=== PATIENT | female | born 1960 | race Caucasian/White ===

== ENCOUNTER 2017-07-03 15:29 | Inpatient (IN) | payer OTHER ==
[~2017-07-03] VITALS: Ht 172.7 cm; Wt 136.5 kg
[~2017-07-03 15:29] MED LIST: ATORVASTATIN CA10 MG PO; ATORVASTATIN CA20 MG PO; BACTRIM DS TAB1 EACH PO; BAYER CHEWABLE81 MG PO; BP MED X 2; CARVEDILOL25 MG PO; CLONIDINE HCL0.2 M2 PO; CLOPIDOGREL75 MG PO; DUONEB 2.5-0.5 M3 ML INH; HUMALOG100 UNIT/1 SQ; HUMALOG100 UNIT/1 SUBQ; HUMULIN 70100 UNIT/3 INJECTION; HYDRALAZINE 5050 MG PO; HYDROCHLOROTHIA25 M1 PO; HYDROCHLOROTHIA25 M2 PO; KLOR-CON 1010 MEQ PO; LANTUS SC; LASIX 20 MG TAB20 MG PO; LEVEMIR SUBQ; LISINOPRIL; LISINOPRIL5 MG PO; MOBIC7.5 M1 PO; NORCO 5-325 TA1 EACH PO; NORVASC10 MG PO; NORVASC5 MG PO; NOVOLIN 70100 UNIT/5 SUBQ; NOVOLIN N100 UNIT/1 SUBQ; NOVOLOG100 UNIT/1 SUBQ; PROAIR HFA8.5 GM INH; PROTONIX40 M1 PO; SODIUM BICARBO650 M3 PO; SYNTHROID175 MCG PO; SYNTHROID25 MCG PO; TRAMADOL 50 MG50 MG PO; ZESTRIL20 MG PO; ZYRTEC10 M4 PO; ZYVOX600 MG PO
[2017-07-03 15:44] VITALS: BP 113/65
[2017-07-03] MEDS ORDERED: HYDRALAZINE 2525 MG PO (15:53)
[2017-07-03] MEDS ORDERED: CARTIA XT120 M1 PO (15:53)
[2017-07-03] MEDS ORDERED: OXYCODONE HCL 55 MG PO (15:54)
[2017-07-03] MEDS ORDERED: ACCUNEB SO1.25 MG/1 INH (15:55)
[2017-07-03 16:20] LABS: HEMATOCRIT 29.7 % (37.0-47.0); HEMOGLOBIN 9.6 gm/dL (12.0-15.0); MCH 27.8 pg (26.0-34.0); MCHC 32.3 g/dL (28.0-37.0); MCV 86.1 fL (80.0-100.0); NUCLEATED RBCS 0 /100WBC; PLATELET COUNT* 181 thou/uL (150-400); RBC 3.45 mil/uL (4.20-5.00); RDW-CV 17.8 % (10.5-14.5)
[2017-07-03 16:26] LABS: ANION GAP 2 mmol/L (7-16); BUN 66 mg/dL (7-18); CALCIUM 8.8 mg/dL (8.5-10.1); CHLORIDE 104 mmol/L (98-107); CO2 37 mmol/L (21-32); CREATININE 2.4 mg/dL (0.6-1.3); GLUCOSE 149 mg/dL (70-99); POTASSIUM 3.4 mmol/L (3.5-5.1); SODIUM 143 mmol/L (136-145)
[2017-07-03 16:38] LABS: ALBUMIN 2.9 g/dL (3.4-5.0); ALKALINE PHOSPHATASE 82 U/L (46-116); NT-PRO BRAIN NAT PEPTIDE 981 pg/mL (<300); SGOT 20 U/L (15-37); SGPT 23 U/L (30-65); TOTAL BILIRUBIN 0.4 mg/dL (<0.1-1.0); TOTAL PROTEIN 7.3 g/dL (6.4-8.2); TROPONIN-I LEVEL <0.06 ng/mL (<0.06)
[2017-07-03 16:42] LABS: ABSOLUTE EOSINOPHILS 0.3 thou/uL (0.0-0.7); ABSOLUTE LYMPHOCYTES 0.5 thou/uL (0.8-5.3); ABSOLUTE MONOCYTES 0.4 thou/uL (0.0-1.2); ABSOLUTE NEUTROPHILS 7.9 thou/uL (1.6-8.1); PLATELET ESTIMATE ADEQUATE
[2017-07-03 16:43] LABS: ANISOCYTOSIS 1+; HYPOCHROMASIA 1+
--- NOTE | 2017-07-03 18:00 | NUR ---
ASSUMED PT CARE
[2017-07-03 18:05] LABS: URINE BILIRUBIN NEGATIVE (Negative); URINE BLOOD NEGATIVE (Negative); URINE CLARITY CLEAR; URINE COLOR YELLOW; URINE GLUCOSE-RANDOM NEGATIVE (Negative); URINE KETONES NEGATIVE (Negative); URINE LEUKOCYTES-REFLEX NEGATIVE (Negative); URINE NITRITE-REFLEX NEGATIVE (Negative); URINE PROTEIN NEGATIVE (Negative); URINE UROBILINOGEN 0.2 E.U./dl (0.2-1.0)
[2017-07-03 18:36] VITALS: BP 145/51
[2017-07-03 19:30] VITALS: BP 130/89
--- NOTE | 2017-07-03 19:30 | NUR ---
ADMITTED TO ROOM FROM ER. TELEMETRY APPLIED SHOWING SB WITH 1ST AVB, BBB AND PAC. O2 ON AT 2L/NC, SOB WITH ACTIVITY. MARITZA LOWER LEGS TIGHT, NON PITTING. SEE ADMISSION ASSESSMENT AND HX. WILL CONT TO MONITOR AND ASSIST NEEDED.
[2017-07-03] MEDS ORDERED: PAXIL10 MG PO (20:02)
[2017-07-04] VITALS: BP 128/45
[2017-07-04] MEDS ORDERED: MIRALAX17 GM PO (00:53)
[2017-07-04 04:20] VITALS: BP 138/43
[2017-07-04 04:52] LABS: HEMATOCRIT 27.2 % (37.0-47.0); HEMOGLOBIN 8.8 gm/dL (12.0-15.0); MCH 27.7 pg (26.0-34.0); MCHC 32.2 g/dL (28.0-37.0); MCV 85.9 fL (80.0-100.0); MPV 8.8 fl. (7.2-11.1); RBC 3.16 mil/uL (4.20-5.00); RDW-CV 17.9 % (10.5-14.5)
[2017-07-04 05:06] LABS: CALCIUM 8.6 mg/dL (8.5-10.1); CREATININE 2.4 mg/dL (0.6-1.3); MAGNESIUM 2.4 mg/dL (1.8-2.4); POTASSIUM 3.4 mmol/L (3.5-5.1)
--- NOTE | 2017-07-04 07:07 | NUR ---
AWAKE FREQ TONIGHT. PT HAD AND EPISODE OF RT SIDE CHEST PAIN UNDER BREAST RADIATING INTO BACK. PT ASKING FOR NITRO THEN SAID IT WAS GONE. STATES HAS THESE EPISODES ABOUT 3X/MONTH. DIFFERENT THEN CHRONIC BACK AND KNEE PAIN. TELEMETRY CONT TO SHOW SB WITH 1ST AVB, BBB, RATE OCC INTO 30'S BUT IMMEDIATELY RETURNS INTO 40'S. CONT TO HAVE URGENCY WITH URINATION, ASSISTED TO BSC. ABLE TO ACHIEVE HS GOAL OF REST AND PARTIAL COMFORT. HOURLY ROUNDING OBSERVED.
[2017-07-04 08:00] VITALS: BP 148/52
--- NOTE | 2017-07-04 08:46 | NUR ---
RECEIVED REPORT FROM JOSE ESPINOSA. ASSUMED CARE OF PT AROUND 07. PT A&O X4, PLEASANT, VSS, O2 SAT 99% ON RA, LUNGS DIMINISHED. 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 AM ASSESSMENT AND VITALS COMPELTED CHARTED. IV INTACT AND SALINE LOCKED TO RIGHT FA. PT REPORTS CHRONIC BACK PAIN 710 - PAIN MEDICATION SCHEDULED FOR THIS AM. PT REPORTS BM YESTERDAY, NO ISSUES. PT REPORTS URINARY URGENCY. PT INFORMED OF PLAN OF CARE, COMMUNCIATES UNDERSTANDING. PT LEFT RESTIG IN BED WATCHING TV WITH VISITOR AT BEDSIDE. LOW FALL RISK PRECAUTIONS IN PLACE. CALL LIGHT IS WITHIN REACH, WCTM FOR DURATION OF SHIFT.
--- NOTE | 2017-07-04 11:31 | EKG ---
[place] [address] ELECTROCARDIOGRAM REPORT Name: ZAMZAMFRANCISCA L Room: [address] ADM IN M.R.#: [id number] Admission: 07/03/17 Attend Phys: Marquita Mccoy MD Discharge: Date of : 56 Report #: [id number] THIS REPORT FOR: //name// [facility] ED Test Date: 2017-07-03 Test Time: 15:56:35 Pat Name: FRANCISCA WYMAN Department: Room: [facility] Gender: F Operations Dispatcher: Carlota RHODES : 1960 Requested By: Sloane Byrne Order Number: [id number] MD: Alexis Simons Measurements Intervals [place] Rate: 61 P: 0 AR: 262 QRS: -71 QRSD: 148 T: 153 QT: 455 QTc: 459 Interpretive Statements Atrial flutter with variable AV conduction Prolonged AR interval Right bundle branch block Inferior infarct, old Baseline wander in lead(s) V6 Compared to ECG 01/15/2017 21:31:33 No significant changes Electronically Signed On 07-04-2017 11:31:29 CDT by Alexis Simons [email or web address] <ELECTRONICALLY SIGNED> By: Alexis Simons MD, FACC 07/04/17 1131 1556 1556 Alexis Simons MD, FACC /EPI
--- NOTE | 2017-07-04 12:25 | NUR ---
MET WITH PT TO DISCUSS HOME SITUATION/DC PLANNING. PT LIVES WITH HER MOTHER WHO IS ALSO HER DPOA. 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 PT HAS HAD HH WITH [facility] IN THE PAST AND WOULD LIKE TO HAVE THEM AGAIN AT [facility]. PT HAS WALKER, BIPAP, NEB AND O2 THRU [facility], WEARS O2 2L AT ALL TIMES. SHE STATES HER BIPAP NEEDS CHECKED, FAMILY IS BRINGING IT IN FOR RT TO ASSESS. IF NEEDED, COULD HAVE [facility] CHECK ALSO. PT FOLLOWS WITH DR HA MUNROE AT [facility], STATES HAS APPT IN EARLY JULY. PT PLANS TO RETURN HOME AT [facility]. WILL FOLLOW [facility] [phone] FAX [phone]
--- NOTE | 2017-07-04 13:47 | 2DMMODE ---
[place] [address] 2 D/M-MODE ECHOCARDIOGRAM Name: ZAMZAMFRANCISCA L Room: [address] IN [facility]#: [id number] Admission: 07/03/17 Attend Phys: Marquita Mccoy, Discharge: Date of : 56 Date of Service: 07/04/17 1346 Report #: [id number] THIS REPORT FOR: //name// APPROVED REPORT Study performed: 07/04/2017 11:36:34 EXAM: Comprehensive 2D, Doppler, and color-flow Echocardiogram Patient Location: In-Patient Room #: [facility] Status: routine BSA: 2.47 HR: 54 bpm BP: 148/52 mmHg Rhythm: NSR Other Information Study Quality: Good Indications COPD Dyspnea 2D Dimensions LVEF(%): 70.39 (>50%) IVSd: 14.16 (7-11mm) LVOT Diam: 19.64 (18-24mm) LVDd: 49.06 mm PWd: 14.32 (7-11mm) Ascending Ao: 30.25 (22-36mm) LVDs: 29.46 (25-40mm) Aortic Root: 29.37 mm Seo's LVEF: 70.39 % Volumes Left Atrial Volume (Systole) LA ESV Index: 30.90 mL/m2 Aortic Valve AoV Peak Tyrese.: 1.56 m/s AO Peak Gr.: 9.79 mmHg LVOT Max P.26 mmHg AO Mean Gr.: 5.29 mmHg LVOT Mean P.77 mmHg LVOT Max V: 1.15 m/s AO V2 VTI: 37.12 cm LVOT Mean V: 0.77 m/s SHLOMO (VTI): 2.62 cm2 LVOT V1 VTI: 32.10 [place] [address] 2 D/M-MODE ECHOCARDIOGRAM Name: FRANCISCA WYMAN Room: [address] IN .R.#: [id number] Admission: 07/03/17 Attend Phys: Marquita cMcoy, Discharge: Date of : 56 Date of Service: 07/04/17 1346 Report #: [id number] E/A Ratio: 1.98 MV Decel. Time: 185.38 ms MV E Max Tyrese.: 1.54 m/s MV PHT: 53.76 ms MVA (PHT): 4.09 cm2 TDI E/Lateral E': 17.11 E/Medial E': 22.00 Medial E' Tyrese.: 0.07 m/s Lateral E' Tyrese.: 0.09 m/s Pulmonary Valve PV Peak Tyrese.: 1.23 m/s PV Peak Gr.: 6.01 mmHg Tricuspid Valve TR Peak Gr.: 38.25 mmHg RVSP: 43.00 mmHg Left Ventricle The left ventricle is normal size. There is normal LV segmental wall motion. Mild to moderate concentric left ventricular hypertrophy. Left ventricular systolic function is normal. LVEF is 65-70%. Transmitral Doppler flow pattern suggests restrictive physiology. Right Ventricle The right ventricle is normal size. The right ventricular systolic function is normal. Atria Left atrium is mildly dilated. Right atrium is mildly dilated. Aortic Valve Mild aortic valve sclerosis. No aortic regurgitation is present. There is no aortic valvular stenosis. Mitral Valve The mitral valve is normal in structure. Trace mitral regurgitation. No evidence of mitral valve stenosis. Tricuspid Valve The tricuspid valve is normal in structure. Trace tricuspid regurgitation. The RVSP is 55-60 mmHg. Pulmonic Valve The pulmonary valve is normal in structure. There [place] [address] 2 D/M-MODE ECHOCARDIOGRAM Name: FRANCISCA WYMAN Room: [address]#: [id number] Admission: 07/03/17 Attend Phys: Marquita Mccoy, Discharge: Date of : 56 Date of Service: 07/04/17 1346 Report #: [id number] valvular regurgitation. Great Vessels The aortic root is normal in size. IVC is dilated and collapses <50% with inspiration. Pericardium There is no pericardial effusion. <Conclusion> The left ventricle is normal size. Mild to moderate concentric left ventricular hypertrophy. Left ventricular systolic function is normal. LVEF is 65-70%. Transmitral Doppler flow pattern suggests restrictive physiology. Left atrium is mildly dilated. Right atrium is mildly dilated. Trace tricuspid regurgitation. The RVSP is 55-60 mmHg. IVC is dilated and collapses <50% with inspiration. <ELECTRONICALLY SIGNED> By: Alexis Simons MD, FACC 07/04/17 1346 1346 1346 Alexis Simons MD, FACC /INF
[2017-07-04 16:41] VITALS: BP 153/52
--- NOTE | 2017-07-04 19:04 | NUR ---
VSS. PT REMAINS A&O4. O2 SAT >90% ON 2L PER NC. 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 PT UP SEVERAL TIMES TO USE BEDSIDE COMMODE WITH STANDBY ASSIST. PT WEARING INCONTINENT PADS TO HELP WITH STRESS INCONTINENCE. PT EATING AND DRINKING WITHOUT ISSUE.FLUID RESTIRCTION MAINTAINED. FAMILY VISITED OFF AND ON THROUGHOUT THE SHIFT. PT REPORTED HEADACHE LATE THIS AM, BUT REFUSED NEED FOR MEDICATION STATING "I JUST NEED TO REST". PT'S HEADACHE RESOLVED ABOUT AN HOUR LATER. PT HAVING GOOD URINARY OUTPUT. PT HAS BROUGHT HOME CPAP MACHINE UP TO USE [employer], STATES SHE MAY NEED SETTINGS RECHECKED. ECHO AND CHEST CT COMPLETED. SEE RESULTS. PT CURRENTLY VISITING IN BED WITH HER ISABELA. CALL LIGHT IS WITHIN REACH, FALL PRECAUTIONS ARE IN PLACE. HORULY ROUNDING PERFORMED.
[2017-07-04 20:00] VITALS: BP 151/50
[2017-07-05 00:19] VITALS: BP 164/90
[2017-07-05 04:40] VITALS: BP 159/47
[2017-07-05 04:49] LABS: HEMATOCRIT 28.6 % (37.0-47.0); HEMOGLOBIN 9.4 gm/dL (12.0-15.0); MCH 27.9 pg (26.0-34.0); MCHC 32.9 g/dL (28.0-37.0); MCV 84.8 fL (80.0-100.0); MPV 9.2 fl. (7.2-11.1); RBC 3.37 mil/uL (4.20-5.00); RDW-CV 17.9 % (10.5-14.5); WBC 9.5 thou/uL (4.0-11.0)
[2017-07-05 05:09] LABS: CALCIUM 9.2 mg/dL (8.5-10.1); CREATININE 2.3 mg/dL (0.6-1.3); MAGNESIUM 2.1 mg/dL (1.8-2.4); POTASSIUM 4.3 mmol/L (3.5-5.1)
--- NOTE | 2017-07-05 06:55 | NUR ---
AWAKE MOST OF NIGHT. UP TO BSC FREQ, HAVING URGENCY. ASSESSMENT UNCHANGED. TELEMETRY CONT TO SHOW SB WITH 1ST AVB AND BBB WITH RATE INTO 50'S. ACHIEVED HS GOAL OF SAFETY. HOURLY ROUNDING OBSERVED.
[2017-07-05 08:00] VITALS: BP 155/52
--- NOTE | 2017-07-05 08:46 | CON ---
[address] [address] CONSULTATION Name: FRANCISCA WYMAN Room: [address] IN .R.#: [id number] Admission: 07/03/17 Attend Phys: Marquita Mccoy MD Discharge: Date of : 56 Report #: [id number] THIS REPORT FOR: //name// CC: Juan Flynnudjanine Elizondo MD [facility] INDICATION: Acute diastolic heart failure. HISTORY OF PRESENT ILLNESS: The patient is a 56-year-old white female who has a history of chronic diastolic heart failure. She has had acute exacerbation over the last month with increased weight gain, increased dyspnea and increased PND. Despite increasing doses of oral diuretics at home, she continues to have volume overload. She has some brief atypical chest pain lasting only seconds. It does not sound like angina. She has a history of coronary artery disease with stenting to the right coronary artery in 2009. She had subsequent intervention in 2013. She has, by noninvasive studies, normal left ventricular systolic function. Repeat echocardiogram has been obtained today and is pending. She is without other cardiac complaints at this time. PAST MEDICAL HISTORY: 1. Chronic diastolic heart failure. 2. Coronary artery disease. 3. Hypertension. 4. Paroxysmal supraventricular tachycardia. 5. Hyperlipidemia. 6. Type 2 diabetes mellitus. PAST SURGICAL HISTORY: 1. Carpal tunnel release. 2. Percutaneous coronary intervention as outlined above. 3. Tonsillectomy. FAMILY HISTORY: Father had heart attack at age 69. SOCIAL HISTORY: The patient quit smoking in 2009. She does not drink alcohol. 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 She wears glasses without visual loss and dentures. Otherwise, 14-point review of [place] [address] CONSULTATION Name: FRANCISCA WYMAN Room: [address]#: [id number] Admission: 07/03/17 Attend Phys: Marquita Mccoy MD Discharge: Date of : 56 Report #: [id number] PHYSICAL EXAMINATION: VITAL SIGNS: Blood pressure 148/52, pulse 49. GENERAL: This is a morbidly obese white female in no distress. HEENT: Extraocular muscles intact. Mucous membranes moist. NECK: Shows a thick neck. I do not appreciate obvious bruit or jugular venous distention. CHEST: Reveals clear lung briggs. CARDIAC: Reveals a regular rhythm with normal S1 and S2. I do not appreciate gallop or murmur. ABDOMEN: Reveals a protuberant abdomen, soft, nontender. Bowel sounds present. EXTREMITIES: Shows trace lower extremity and ankle edema. Peripheral pulses 2+ and palpable. SKIN: Warm and dry. LABORATORY DATA: A 12-lead EKG shows what appears to be in atrial flutter with variable AV conduction. There is a possible old inferior infarct. There is a right bundle-branch block. Labs are reviewed. Sodium 144, potassium 3.4, chloride 103, bicarbonate 40, BUN 64, creatinine 2.4, serum glucose 138. LFTs are within normal limits. Troponin is less than 0.06. NT-proBNP is 981. White blood cell count 8.0, hemoglobin 8.8, platelet count 176,000. Chest x-ray: Mildly increased basilar density suggesting atelectasis. CT chest: Benign calcified granulomas. No suspicious lesions, coronary calcification noted, interval resolution of a trace left pleural effusions and atelectasis. IMPRESSION AND RECOMMENDATIONS: 1. Purrh-kk-[id number] diastolic heart failure. Echocardiogram ordered and pending. Continue IV Lasix. We will follow I's and O's during hospitalization and follow labs carefully. 2. Coronary artery disease, presently stable. She is having no symptoms to suggest angina or acute coronary syndrome. 3. Hypertension. Heart rate is somewhat slow. I am adjusting her antihypertensives. 4. Bradycardia due to medication including diltiazem and carvedilol. 5. Hypothyroidism. Continue replacement. 6. History of paroxysmal supraventricular tachycardia without clinical recurrence. 7. Possible atrial flutter on EKG. Continue telemetry monitoring. Rate appears to be well controlled. We will need to consider chronic anticoagulation. <ELECTRONICALLY SIGNED> By: Alexis Simons MD, FACC 07/05/17 0846 1326 [id number] Hospitaldamian Simons MD, FACC /nt
[2017-07-05 12:58] VITALS: BP 147/39
--- NOTE | 2017-07-05 16:49 | NUR ---
RECEIVED REPORT FROM FRANCISCA GARCIA. ASSUMED CARE OF PT AROUND 729. PT A&OX4, PLEASANT. PT STATES SHE IS TIRED TODAY, DIDN'T SLEEP WELL LAST NIGHT. VSS, O2 SAT 97% ON 3L PER NC. 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 AM ASSESSMENT AND VITALS COMPLETED CHARTED. IV TO RIGHT FA INTACT AND SALINE LOCKED. PT CONTINUIING TO DIURESE TODAY - UP FREQUENTLY TO THE BEDSIDE COMMODE. PT ALSO WEARING INCONTINENT BRIEFS TO HELP WITH HER URGENCY. EDEMA TO BLE IMPROVING, LESS TIGHT TODAY, REMAINS NON-PITTING. PT REPORTED BACK PAIN THIS AM AND RECEIVED SCHEDULED PAIN MEDICATION WITH NO RELIEF. PT REFUSED FURTHER MEDICATION FOR PAIN AND HAS BEEN HANDLING HER PAIN THROUGH REPOSITIONING AND DISTRACTION. PT HAS VISITED WITH FAMILY ON HER CELL PHONE TODAY. PT CURRENTLY RESTING IN BED WATCHING TV. CALL LIGHT IS WITHIN REACH, FALL PRECAUTIONS ARE IN PLACE. HOURLY ROUNDING PERFORMED. WCTM FOR DURATION OF SHIFT.
[2017-07-05 17:16] VITALS: BP 122/50
[2017-07-05 20:15] VITALS: BP 139/52
[2017-07-06] VITALS (7 sets, daily range): BP systolic 106–159; BP diastolic 48–63
[2017-07-06 04:24] LABS: HEMATOCRIT 30.2 % (37.0-47.0); HEMOGLOBIN 9.7 gm/dL (12.0-15.0); MCH 27.2 pg (26.0-34.0); MCHC 32.1 g/dL (28.0-37.0); MPV 9.4 fl. (7.2-11.1); RBC 3.55 mil/uL (4.20-5.00); RDW-CV 17.8 % (10.5-14.5)
[2017-07-06 04:41] LABS: CALCIUM 9.1 mg/dL (8.5-10.1); CREATININE 2.4 mg/dL (0.6-1.3); POTASSIUM 3.9 mmol/L (3.5-5.1)
--- NOTE | 2017-07-06 04:59 | NUR ---
PT SLEPT AT INTERVALS DURING THE NIGHT, UP SBA TO THE BSC, REMAINS ON 3L/NC, PLEASANT, PRN PAIN MEDICATIONS GIVEN PER REQUEST, CALL LIGHT IN REACH, BED ALARM ON FOR SAFETY, WILL CONTINUE TO MONITOR
--- NOTE | 2017-07-06 11:08 | NUR ---
ASSUMED CARE OF PATIENT THIS AM AT 0730. PATIENT IS ALERT AND ORIENTED X 4. SHE C/O CHRONIC BACK PAIN. PATIENT MEDICATED FOR PAIN PO AND IV. FSBS MONITORED. PATIENT HAS BEEN UP TO THE BSC FREQUENTLY FOR URINE. TELE SHOWS CONTINUED SR WITH BBB AND 1ST DEGREE AVB. O2 SATS 96% ON 3 LITERS. WILL CONTINUE TO MONITOR COMFORT AND RESPIRATORY STATUS. NO FALLS OR INJURY.
--- NOTE | 2017-07-06 20:00 | NUR ---
RECEIVED REPORT AND ASSUMED CARE OF PT, ASSESSMENT COMPLETED. PT SEEMS QUIET AND IN THE DARK THIS EVENING. STATES NOT FEELING WELL. DECREASED EDEMA IN MARITZA LOWER LEGS. VOIDING WELL PER BSC, HAVING URGENCY. CONT WITH MOISTURE DERMATITIS TO BUTTOCKS. O2 ON AT 3L/NC, HOB ELEVATED. TELEMETRY ON SHOWING SR WITH 1ST AVB AND BBB. HR 79, PT STATES HER HEART IS RACING COMPARED TO WHAT SHE NORMALLY RUNS, EXPLAINED DR HAS CHANGED CARDIAC MEDS. WILL CONT TO MONITOR AND ASSIST NEEDED.
[2017-07-07 03:52] VITALS: BP 140/69
[2017-07-07 05:57] LABS: CALCIUM 9.1 mg/dL (8.5-10.1); CREATININE 2.4 mg/dL (0.6-1.3); MAGNESIUM 2.1 mg/dL (1.8-2.4)
--- NOTE | 2017-07-07 06:56 | NUR ---
SLEPT WELL ALL NIGHT. C/O UPSET STOMACH, IV MED GIVEN, IMMEDIATELY BACK TO SLEEP. UP TO BSC INDEPENDENTLY, DRIBBLING DURING TRANSFER. O2 ON AT 3L/NC. TELEMETRY CONT TO SHOW SR WITH 1ST AVB AND BBB. PO PAIN MED GIVEN AT HS. ACHIEVED HS GOAL OF REST AND COMFORT. HOURLY ROUNDING OBSERVED.
[2017-07-07 09:00] VITALS: BP 142/64
[2017-07-07 11:00] VITALS: BP 155/70
--- NOTE | 2017-07-07 11:23 | EKG ---
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 : 1960 Requested By: Carlos Teresa Order Number: [id number] James MD: Brent Pineda Measurements Intervals [place] Rate: 85 P: -60 AL: 262 QRS: -79 QRSD: 135 T: 88 QT: 399 QTc: 475 Interpretive Statements Sinus rhythm left axis Atrial premature complex Prolonged AL interval Right bundle branch block Compared to ECG 07/03/2017 15:56:35 Atrial premature complex(es) now present Electronically Signed On 07-07-2017 11:23:16 CDT by Brent Pineda [email or web address] <ELECTRONICALLY SIGNED> By: Brent Pineda MD, FAC 07/07/17 1123 0923 0923 Brent Pineda MD, [facility] /EPI
--- NOTE | 2017-07-07 13:25 | NUR ---
Nutrition: Pt seen for high BMI. Admitted with renal failure. H/o COPD, HTN, DM, OBE, CKD IV, CHF. On IV lasix and daily wts. On fluid restriction, renal diet. Labs: BUN 63, creat 2.4, alb 2.9, BG 200. Tolerating diuresis. Pt refused renal diet education. Wt is 305#, usual wt is around 285#. Consider Mild risk. RD available via consult if further nutrition is needed.
[2017-07-07 16:00] VITALS: BP 106/64
--- NOTE | 2017-07-07 16:12 | NUR ---
ASSUMED PT CARE AT 0700 PT IS ALERT AND ORIENTED X 4 PT STATES SHE IS HAVING CHEST PAIN ASSESSED PT WHO STATES PAIN IS MORE CHEST ACHINESS STATES PAIN IS UNDER BREAST ALSO NOTIFIED CARDIOLOGY WHO ORDERED EKG AND NITRO GAVE 1 OF NITRO REASSESSED PT STATES NITRO HELPED EKG IS SR BBB, PT IS UP AD CARLOS PT IS NOT A FALL RISK, PT IS SR BBB PAC ON THE MONITOR NO FURTHER C/O CHEST ACHINESS NOTED, PT IS ON 3L/NC, PT DOES NOT WANT TO MOVE OUT OF BED CONTINUES TO BE INACTIVE EVEN WITH ENCOURAGEMENT OF AMBULATING, WILL CONTINUE TO MONITOR
[2017-07-07 20:00] VITALS: BP 182/66
[2017-07-07 23:40] VITALS: BP 167/83
--- NOTE | 2017-07-08 03:46 | NUR ---
ASSUMED PT CRAE At 1930, PT IS A&OX4, PT IS TRACING NSR ON THE MONITOR, WITH A 1DAVB AND A BBB. PT IS ON 3L NC, ACCORDING TO THE PT SHE WEARS 2L NC AT HOME ALL THE TIME. PT HAS HER HOME CPAP AT THE [facility], BUT STATES "IT IS BROKEN, IT DOES NOT GIVEN ME ENOUGH AIR" SO SHE REFUSES TO WEAR IT. PT C/O GENERALIZED PAIN THIS SHIFT, PRN PAIN MEDICATIONS GIVEN PER MAR WITH RELIEF. PT IS UP AD CARLOS TO THE BS. PT IS ON ISOLATION FOR HX OF MRSA. BED IN LOW POSITION, CALL LIGHT IN REACH. PT SLEPT ON AND OFF THROUGHOUT THE NIGHT. HOURLY ROUNDING COMPLETED FOR PT SAFETY.
[2017-07-08 03:47] VITALS: BP 147/64
[2017-07-08 04:58] LABS: BUN 60 mg/dL (7-18); CALCIUM 9.1 mg/dL (8.5-10.1); CHLORIDE 97 mmol/L (98-107); CREATININE 2.3 mg/dL (0.6-1.3); GLUCOSE 107 mg/dL (70-99); MAGNESIUM 1.9 mg/dL (1.8-2.4); POTASSIUM 3.7 mmol/L (3.5-5.1); SODIUM 146 mmol/L (136-145)
[2017-07-08 05:03] LABS: CO2 > 45 mmol/L (21-32)
[2017-07-08 09:30] VITALS: BP 172/72
[2017-07-08] MEDS ORDERED: LASIX 80 MG TAB80 MG PO (09:48)
[2017-07-08] MEDS ORDERED: METOLAZONE 5 MG5 MG PO (09:48)
[2017-07-08] MEDS ORDERED: POTASSIUM20 PO (09:49)
[2017-07-08 11:41] VITALS: BP 175/77
--- NOTE | 2017-07-08 14:00 | NUR ---
CONTINUE TO FOLLOW, PT HAS BEEN CLEARED FOR DC. MET WITH PT. SHE STATED SHE THOUGHT SOMEONE FROM [facility] WAS COMING TO CHECK HER CPAP. CALL TO [facility], SPOKE WITH ELISABETH. THEY ARE CHECKING TO SEE IF SOMEONE WILL CHECK IT HERE OR AT HER HOME
--- NOTE | 2017-07-08 14:23 | NUR ---
ASSUMED PT CARE AT 0700 PT IS ALERT AND ORIENTED X 4 PT C/O PAIN GAVE PAIN MEDS REASSESSED PT STATES PAIN MEDS HELPED PT DENIES SOA ON 2L/NC, PT C/O UPSET STOMACH GAVE ZOFRAN, PT CPAP NOT WORKING CALLED MICHELLE WHO WILL LOOK AT EQUIPMENT AT HOME PT IS CLEARED BY HOSPITALIST AND CARDIOLOGY TO DISCHARGE, PT IS UP AD CARLOS PT IS NOT A FALL RISK WILL ONLY MOVE TO USE BEDSIDE COMMODE, PT IS SR 1ST BBB PAC ON THE MONITOR, PT REFUSED PICTURES FOR SKIN IRRITATION ON BUTTOCK, WILL CONTINUE TO MONITOR
[2017-07-08] MEDS ORDERED: TOPROL XL25 MG PO (15:04)
== END 2017-07-08 16:30 | disposition home or self-care (01) | DRG 291 ==
LOC: M.ERS 15:29 → M.TBA-ER 17:50 → M.2W 17:50
PROVIDERS: Internal Medicine; Physician Assistant; ADMIT Internal Medicine
DX: I13.0 Hypertensive heart and chronic kidney disease with heart failure and stage 1 through stage 4 chronic kidney disease, or unspecified chronic kidney disease (principal); I50.33 Acute on chronic diastolic (congestive) heart failure; J96.21 Acute and chronic respiratory failure with hypoxia; N18.4 Chronic kidney disease, stage 4 (severe); J98.11 Atelectasis; I48.92 Unspecified atrial flutter; K50.90 Crohn's disease, unspecified, without complications; J44.1 Chronic obstructive pulmonary disease with (acute) exacerbation; N17.9 Acute kidney failure, unspecified; Z68.42 Body mass index [BMI] 45.0-49.9, adult; I25.10 Atherosclerotic heart disease of native coronary artery without angina pectoris; E78.5 Hyperlipidemia, unspecified; E11.22 Type 2 diabetes mellitus with diabetic chronic kidney disease; R00.1 Bradycardia, unspecified; E03.9 Hypothyroidism, unspecified; G47.33 Obstructive sleep apnea (adult) (pediatric); E66.01 Morbid (severe) obesity due to excess calories; Z87.891 Personal history of nicotine dependence; Z91.040 Latex allergy status; Z82.49 Family history of ischemic heart disease and other diseases of the circulatory system; Z95.5 Presence of coronary angioplasty implant and graft; Z79.899 Other long term (current) drug therapy

== ENCOUNTER 2017-07-08 18:52 | Inpatient (IN) | payer OTHER ==
[~2017-07-08] VITALS: Ht 172.7 cm; Wt 133.4 kg
[~2017-07-08 18:52] MED LIST changes: +ACCUNEB SO1.25 MG/1 INH; +CARTIA XT120 M1 PO; +HYDRALAZINE 2525 MG PO; +LASIX 80 MG TAB80 MG PO; +METOLAZONE 5 MG5 MG PO; +MIRALAX17 GM PO; +OXYCODONE HCL 55 MG PO; +PAXIL10 MG PO; +POTASSIUM20 PO; +TOPROL XL25 MG PO
[2017-07-08 18:54] VITALS: BP 91/73
[2017-07-08 19:18] LABS: HEMATOCRIT 35.8 % (37.0-47.0); HEMOGLOBIN 11.3 gm/dL (12.0-15.0); MCH 27.2 pg (26.0-34.0); MCHC 31.5 g/dL (28.0-37.0); MCV 86.2 fL (80.0-100.0); MPV 9.2 fl. (7.2-11.1); NUCLEATED RBCS 0 /100WBC; PLATELET COUNT* 240 thou/uL (150-400); RBC 4.15 mil/uL (4.20-5.00); RDW-CV 17.8 % (10.5-14.5); WBC 18.4 thou/uL (4.0-11.0)
[2017-07-08 19:33] LABS: ANION GAP 5 mmol/L (7-16); BUN 61 mg/dL (7-18); CALCIUM 9.6 mg/dL (8.5-10.1); CHLORIDE 92 mmol/L (98-107); CREATININE 2.3 mg/dL (0.6-1.3); GLUCOSE 294 mg/dL (70-99); SODIUM 142 mmol/L (136-145)
[2017-07-08 19:36] LABS: APTT 26.4 Seconds (25.0-31.3); INR 1.1; PROTIME 10.4 Seconds (9.20-11.50)
[2017-07-08 19:38] LABS: CO2 45 mmol/L (21-32)
[2017-07-08 19:44] LABS: ALBUMIN 3.4 g/dL (3.4-5.0); ALKALINE PHOSPHATASE 90 U/L (46-116); NT-PRO BRAIN NAT PEPTIDE 5440 pg/mL (<300); SGOT 22 U/L (15-37); SGPT 17 U/L (30-65); TOTAL BILIRUBIN 0.6 mg/dL (<0.1-1.0); TOTAL PROTEIN 8.8 g/dL (6.4-8.2); TROPONIN-I LEVEL <0.06 ng/mL (<0.06)
[2017-07-08 20:02] LABS: ABSOLUTE BASOPHILS 0.2 thou/uL (0.0-0.2); ABSOLUTE EOSINOPHILS 0.4 thou/uL (0.0-0.7); ABSOLUTE LYMPHOCYTES 0.7 thou/uL (0.8-5.3); ABSOLUTE MONOCYTES 0.6 thou/uL (0.0-1.2); ABSOLUTE NEUTROPHILS 16.6 thou/uL (1.6-8.1); PLATELET ESTIMATE ADEQUATE
[2017-07-08 20:24] LABS: BE 19.8 mmol/L (-2 to +3); PO2 69.7 mmHg (75.0-100.0); pH 7.432 (7.340-7.450)
[2017-07-08 20:26] LABS: PCO2 73.6 mmHg (35.0-45.0)
[2017-07-08 21:35] VITALS: BP 175/57
[2017-07-08 21:55] VITALS: BP 182/68
[2017-07-08 23:38] VITALS: BP 157/55
[2017-07-09] VITALS (7 sets, daily range): BP systolic 149–227; BP diastolic 60–91
--- NOTE | 2017-07-09 11:08 | EKG ---
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 Van : 1960 Requested By: Barrington Amezcua Order Number: [id number] MD: Brent Pineda Measurements Intervals [place] Rate: 85 P: -28 MD: 219 QRS: -90 QRSD: 137 T: 87 QT: 434 QTc: 517 Interpretive Statements Sinus rhythm Atrial premature complexes in couplets Prolonged MD interval Right bundle branch block Inferior infarct, old Compared to ECG 07/07/2017 09:23:07 no change Electronically Signed On 07-09-2017 11:08:26 CDT by Brent Pineda [email or web address] <ELECTRONICALLY SIGNED> By: Bernt Pineda MD, [facility] 07/09/17 1108 1905 [id number] Brent Pineda MD, [facility] /EPI
--- NOTE | 2017-07-09 15:22 | EKG ---
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 : 1960 Requested By: Marquita Mccoy Order Number: [id number] Reading MD: Brent Pineda Measurements Intervals [place] Rate: 85 P: -20 DC: 244 QRS: -88 QRSD: 137 T: 87 QT: 425 QTc: 506 Interpretive Statements Sinus rhythm pac left axis Prolonged DC interval Right bundle branch block Inferior infarct, old Compared to ECG 07/08/2017 19:05:18 No significant changes Electronically Signed On 07-09-2017 15:22:30 CDT by Brent Pineda [email or web address] <ELECTRONICALLY SIGNED> By: Brent Pineda MD, [facility] 07/09/17 1522 1338 1338 Brent Pineda MD, [facility] /EPI
[2017-07-10] VITALS: BP 211/96
[2017-07-10 04:00] VITALS: BP 188/85
[2017-07-10 04:55] LABS: HEMATOCRIT 39.2 % (37.0-47.0); HEMOGLOBIN 12.4 gm/dL (12.0-15.0); MCH 27.2 pg (26.0-34.0); MCHC 31.6 g/dL (28.0-37.0); MCV 85.9 fL (80.0-100.0); MPV 8.9 fl. (7.2-11.1); RBC 4.56 mil/uL (4.20-5.00); RDW-CV 18.3 % (10.5-14.5); WBC 17.2 thou/uL (4.0-11.0)
[2017-07-10 05:19] LABS: ALBUMIN 3.4 g/dL (3.4-5.0); ALKALINE PHOSPHATASE 89 U/L (46-116); BUN 62 mg/dL (7-18); CALCIUM 9.8 mg/dL (8.5-10.1); CHLORIDE 95 mmol/L (98-107); CREATININE 1.9 mg/dL (0.6-1.3); GLUCOSE 225 mg/dL (70-99); MAGNESIUM 2.2 mg/dL (1.8-2.4); POTASSIUM 3.6 mmol/L (3.5-5.1); SGOT 22 U/L (15-37); SGPT 18 U/L (30-65); SODIUM 147 mmol/L (136-145); TOTAL BILIRUBIN 0.5 mg/dL (<0.1-1.0); TOTAL PROTEIN 8.5 g/dL (6.4-8.2)
[2017-07-10 05:23] LABS: CO2 > 45 mmol/L (21-32)
[2017-07-10 05:52] LABS: BE 17.9 mmol/L (-2 to +3); pH 7.437 (7.340-7.450)
[2017-07-10 05:56] LABS: PCO2 69.5 mmHg (35.0-45.0)
[2017-07-10 05:57] LABS: HCO3 45.8 mmol/L (22.0-26.0)
[2017-07-10 08:22] VITALS: BP 189/77
[2017-07-10 12:26] VITALS: BP 205/80
[2017-07-10 15:42] VITALS: BP 187/97
[2017-07-10 20:58] VITALS: BP 107/50
[2017-07-11] VITALS (7 sets, daily range): BP systolic 105–118; BP diastolic 32–64
[2017-07-11 04:45] LABS: HEMATOCRIT 38.2 % (37.0-47.0); HEMOGLOBIN 11.9 gm/dL (12.0-15.0); MCH 26.6 pg (26.0-34.0); MCHC 31.1 g/dL (28.0-37.0); MCV 85.4 fL (80.0-100.0); RBC 4.48 mil/uL (4.20-5.00); RDW-CV 17.8 % (10.5-14.5); WBC 19.3 thou/uL (4.0-11.0)
[2017-07-11 05:37] LABS: ALBUMIN 2.7 g/dL (3.4-5.0); ALKALINE PHOSPHATASE 70 U/L (46-116); BUN 88 mg/dL (7-18); CHLORIDE 92 mmol/L (98-107); GLUCOSE 167 mg/dL (70-99); MAGNESIUM 2.1 mg/dL (1.8-2.4); POTASSIUM 3.9 mmol/L (3.5-5.1); SGOT 23 U/L (15-37); SGPT 17 U/L (30-65); SODIUM 144 mmol/L (136-145); TOTAL BILIRUBIN 0.3 mg/dL (<0.1-1.0); TOTAL PROTEIN 6.7 g/dL (6.4-8.2)
[2017-07-11 05:43] LABS: CO2 > 45 mmol/L (21-32); CREATININE 3.5 mg/dL (0.6-1.3)
[2017-07-12 03:49] VITALS: BP 126/48
[2017-07-12 08:00] VITALS: BP 158/56
[2017-07-12 10:28] LABS: CALCIUM 8.1 mg/dL (8.5-10.1); POTASSIUM 3.6 mmol/L (3.5-5.1)
[2017-07-12 10:29] LABS: CREATININE 5.2 mg/dL (0.6-1.3)
[2017-07-12 12:00] VITALS: BP 140/65
[2017-07-12 16:22] VITALS: BP 157/44
[2017-07-12 19:13] LABS: URINE BILIRUBIN NEGATIVE (Negative); URINE BLOOD 3+ (Negative); URINE CLARITY CLEAR; URINE COLOR YELLOW; URINE GLUCOSE-RANDOM 2+ (Negative); URINE KETONES NEGATIVE (Negative); URINE LEUKOCYTES NEGATIVE (Negative); URINE NITRITE NEGATIVE (Negative); URINE PROTEIN 1+ (Negative); URINE SPECIFIC GRAVITY 1.015 (1.005-1.030); URINE UROBILINOGEN 0.2 E.U./dl (0.2-1.0)
[2017-07-12 19:20] LABS: CASTS None Seen /LPF (None Seen); CRYSTALS None Seen /LPF (None Seen); MUCUS 0-3 Light strn/LPF (None Seen); SQUAMOUS 4-10 Moderate /LPF (0-3)
[2017-07-12 19:21] LABS: URINE RBC >20 Many /HPF (0-2); URINE WBC 0-5 Rare /HPF (0-5)
[2017-07-12 19:22] LABS: BACTERIA None Seen /HPF (None Seen)
[2017-07-12 20:00] VITALS: BP 169/51
[2017-07-13] VITALS (7 sets, daily range): BP systolic 114–207; BP diastolic 40–73
[2017-07-13 04:49] LABS: HEMATOCRIT 34.9 % (37.0-47.0); HEMOGLOBIN 11.2 gm/dL (12.0-15.0); MCH 27.3 pg (26.0-34.0); MCHC 32.1 g/dL (28.0-37.0); MCV 85.1 fL (80.0-100.0); MPV 9.4 fl. (7.2-11.1); RBC 4.1 mil/uL (4.20-5.00); RDW-CV 17.4 % (10.5-14.5); WBC 12.9 thou/uL (4.0-11.0)
[2017-07-13 05:15] LABS: ALBUMIN 2.6 g/dL (3.4-5.0); CALCIUM 8.1 mg/dL (8.5-10.1); MAGNESIUM 2.3 mg/dL (1.8-2.4); POTASSIUM 3.7 mmol/L (3.5-5.1); TOTAL BILIRUBIN 0.3 mg/dL (<0.1-1.0); TOTAL PROTEIN 6.2 g/dL (6.4-8.2)
[2017-07-14] VITALS (8 sets, daily range): BP systolic 144–201; BP diastolic 57–80
[2017-07-14 05:04] LABS: HEMATOCRIT 36.3 % (37.0-47.0); HEMOGLOBIN 11.6 gm/dL (12.0-15.0); MCHC 31.9 g/dL (28.0-37.0); MCV 84.5 fL (80.0-100.0); MPV 9.7 fl. (7.2-11.1); RBC 4.29 mil/uL (4.20-5.00); RDW-CV 17.7 % (10.5-14.5); WBC 15.2 thou/uL (4.0-11.0)
[2017-07-14 05:29] LABS: ALBUMIN 2.7 g/dL (3.4-5.0); CALCIUM 8.5 mg/dL (8.5-10.1); MAGNESIUM 2.3 mg/dL (1.8-2.4); POTASSIUM 3.9 mmol/L (3.5-5.1); TOTAL BILIRUBIN 0.2 mg/dL (<0.1-1.0); TOTAL PROTEIN 6.9 g/dL (6.4-8.2)
[2017-07-14 05:31] LABS: CREATININE 2.7 mg/dL (0.6-1.3)
[2017-07-15 04:21] LABS: HEMATOCRIT 32.9 % (37.0-47.0); HEMOGLOBIN 10.4 gm/dL (12.0-15.0); MCHC 31.7 g/dL (28.0-37.0); MCV 85.1 fL (80.0-100.0); RBC 3.87 mil/uL (4.20-5.00); RDW-CV 17.8 % (10.5-14.5); WBC 16.1 thou/uL (4.0-11.0)
[2017-07-15 04:34] LABS: ALBUMIN 2.4 g/dL (3.4-5.0); CALCIUM 8.4 mg/dL (8.5-10.1); CREATININE 2.4 mg/dL (0.6-1.3); POTASSIUM 4.3 mmol/L (3.5-5.1); TOTAL BILIRUBIN 0.3 mg/dL (<0.1-1.0); TOTAL PROTEIN 6.2 g/dL (6.4-8.2)
[2017-07-15 06:50] VITALS: BP 175/58
[2017-07-15 07:50] VITALS: BP 170/57
--- NOTE | 2017-07-15 09:34 | CON ---
[address] [address] CONSULTATION Name: FRANCISCA WYMAN Room: [address] IN M.R.#: [id number] Admission: 07/08/17 Attend Phys: Marquita Mccoy MD Discharge: Date of : 56 Report #: [id number] THIS REPORT FOR: //name// CC: Juan Mccoy CONSULTING PHYSICIAN: Dr. Mccoy. REASON FOR CONSULTATION: Acute kidney injury. HISTORY OF PRESENT ILLNESS: A 56-year-old female with a history of stage 4 chronic kidney disease who was admitted with weakness and diastolic heart failure with a mild chronic obstructive pulmonary disease exacerbation and she was treated with IV diuretics and steroids. Her serum creatinine began to rise and on 07/10/2017 it was 1.9, it was up to 5.2 on 07/12/2017, the Lasix was held. She was given IV fluids. She denies any NSAID use. She currently has no complaints. She feels comfortable. She has no shortness of breath. REVIEW OF SYSTEMS: Constitutional, psych, heme, eyes, ENT, respiratory, cardiac, GI, , endocrine all negative except as documented above. PAST MEDICAL HISTORY: Chronic kidney disease stage 4, obstructive sleep apnea, history of Crohn disease, diastolic heart failure, history of diabetes, hypertension, coronary artery disease with history of multiple stents, history of AFib, hypothyroidism, pulmonary granulomas. SOCIAL HISTORY: Former smoker. FAMILY HISTORY: Not pertinent in this 56-year-old female. CURRENT MEDICATIONS: Reviewed. PHYSICAL EXAMINATION: VITAL SIGNS: Blood pressure 151/40, pulse 56, respirations 20, temperature 36.9. GENERAL: No acute distress. EYES: Extraocular movements intact. EARS: Externally normal. CARDIOVASCULAR: Regular rate. LUNGS: Diminished breath sounds. ABDOMEN: Soft, obese, nontender. MUSCULOSKELETAL: Nontender. PSYCHIATRIC: Awake, alert. LABORATORY DATA: White cell count 12.9, hemoglobin 11.2, platelets 209. Sodium 142, potassium 3.7, chloride 97, bicarbonate 40, BUN 131, creatinine 4, glucose 55, calcium 8.1, albumin 2.6[place] [address] CONSULTATION Name: FRANCISCA WYMAN Room: [address] IN [facility]#: [id number] Admission: 07/08/17 Attend Phys: Marquita Mccoy MD Discharge: Date of : 56 Report #: [id number] ASSESSMENT: 1. Acute kidney injury with a baseline creatinine of 1.9, 07/12/2017 creatinine up to 5.2 in the setting of IV diuretics and lisinopril with diastolic heart failure and chronic obstructive pulmonary disease exacerbation. Ejection fraction on echo was 65-70% with a pulmonary artery pressure of 55-60. She also has elevated BUN in the setting of steroids. Kidney ultrasound did not reveal any acute findings and CK from 07/08/2017 was okay. UA noted. 2. Hematuria. 3. Hypertension. 4. Chronic kidney disease stage 4. Baseline creatinine probably runs around 2, followed by Dr. Cedeno as an outpatient. 5. Chronic obstructive pulmonary disease. 6. Diabetes. 7. Obstructive sleep apnea. PLAN: 1. Holding Lasix and lisinopril. Renal function is improving. 2. Continue IV fluids. 3. We will check labs in the a.m. including a CK. 4. She will need a repeat urinalysis, which can be done as an outpatient to ensure the hematuria has cleared. Thank you for requesting my opinion in the care and management of this patient. <ELECTRONICALLY SIGNED> By: Trista Hubbard MD 07/15/17 0934 1219 1425Abitony Hubbard MD /nt
[2017-07-15 10:53] VITALS: BP 134/49
[2017-07-15 16:00] VITALS: BP 116/51
[2017-07-15 21:48] VITALS: BP 159/57
[2017-07-16 04:41] LABS: HEMATOCRIT 31.6 % (37.0-47.0); HEMOGLOBIN 10.2 gm/dL (12.0-15.0); MCH 27.4 pg (26.0-34.0); MCHC 32.1 g/dL (28.0-37.0); MCV 85.2 fL (80.0-100.0); MPV 10.2 fl. (7.2-11.1); RBC 3.71 mil/uL (4.20-5.00); RDW-CV 18.2 % (10.5-14.5); WBC 13.5 thou/uL (4.0-11.0)
[2017-07-16 04:56] LABS: CALCIUM 8.3 mg/dL (8.5-10.1); CREATININE 2.3 mg/dL (0.6-1.3); POTASSIUM 4.4 mmol/L (3.5-5.1)
[2017-07-16 08:30] VITALS: BP 176/60
[2017-07-16 08:56] VITALS: BP 176/60
[2017-07-16] MEDS ORDERED: PREDNISONE 20 M20 MG PO (09:20)
[2017-07-16] MEDS ORDERED: OXYCODONE HCL 55 MG PO (09:20)
[2017-07-16] MEDS ORDERED: LIDOPATCH1 EACH TOP (09:20)
[2017-07-16] MEDS ORDERED: LEVAQUIN 500 M500 M2 PO (09:20)
[2017-07-16] MEDS ORDERED: GABAPENTIN 100100 MG PO (09:20)
[2017-07-16] MEDS ORDERED: HYDRALAZINE 2525 MG PO (09:20)
[2017-07-16] MEDS ORDERED: TOPROL XL50 MG PO (09:20)
[2017-07-16] MEDS ORDERED: HUMALOG100 UNIT/1 SUBQ (09:20)
--- NOTE | 2017-08-05 15:21 | CON ---
[address] [address] CONSULTATION Name: FRANCISCA WYMAN Estefani Room: [address] IN M.R.#: [id number] Admission: 07/08/17 Attend Phys: Marquita Mccoy MD Discharge: 07/16/17 Date of : 56 Report #: [id number] THIS REPORT FOR: //name// CC: Juan Mccoy REASON FOR CONSULTATION: Evaluation and recommendations regarding post-acute rehabilitation. HISTORY OF PRESENT ILLNESS: A 56-year-old female, admitted acutely with weakness, congestive heart failure and chronic obstructive pulmonary disease. She was discharged, on the same day she was readmitted. She had gone home, had significant shortness of breath, felt weak and returned for further evaluation. She has multiple medical problems including abscess, acute renal failure, congestive heart failure exacerbation, chronic obstructive pulmonary disease exacerbation, diastolic congestive heart failure, dyspnea and gluteal abscess, hypoxia, palpitations, history of respiratory failure and ongoing weakness, changes in mobility and activities of daily living. Her previous level of function, she needed assistance with ADLs of her mother, but she was able to do some on her own. Currently, she is physical therapy standby assist to moderate assistance in ambulating 5 feet. With occupational therapy, she is supervision to moderate assistance of 1-2 depending on therapy, activity and time of day. She does have ongoing rehabilitation needs and is likely not able to return to the home setting without significant care. ALLERGIES: LATEX. Vital signs, laboratories and diagnostic imaging have all been reviewed. MEDICATIONS: Have been reviewed and are available in the MAR. PAST MEDICAL AND SURGICAL HISTORY: Diabetes, morbid obesity, hypertension, carpal tunnel, tonsillectomy, adenoidectomy, coronary artery disease, AFib, hypothyroid, chronic obstructive pulmonary disease, kidney disease stage 4, VISHAL, diastolic congestive heart failure, Crohn disease, pulmonary granulomas, history of MRSA abscess, chronic hypoxic respiratory failure. FAMILY HISTORY: Heart disease. SOCIAL HISTORY: No tobacco, former smoker. No alcohol or illicit drug use. REVIEW OF SYSTEMS: A 14-point review of systems is done and is negative except as mentioned in the HPI, specifically no fever, chest pain, shortness of breath, abdominal [place] [address] CONSULTATION Name: FRANCISCA WYMAN Room: [address]#: [id number] Admission: 07/08/17 Attend Phys: Marquita Mccoy MD Discharge: 07/16/17 Date of : 56 Report #: [id number] ASSESSMENT: 1. Acute on chronic diastolic dysfunction, significant weakness, alterations in activities of daily living and mobility. 2. Chronic obstructive pulmonary disease, mild exacerbation. 3. Significant debility. 4. Uncontrolled hypertension. 5. Diabetes. 6. Morbid obesity. 7. Chronic kidney disease stage 4. PLAN: She will need post-acute rehabilitation, recommend a skilled level of care. Given her current level of debility, she would be appropriate for 2 hours of therapy versus 3 hours of therapy. We will follow during her acute stay. <ELECTRONICALLY SIGNED> By: Tania Connor DO 08/05/17 1521 1348 1911Tania Connor DO /nt
== END 2017-07-16 13:35 | DRG 682 ==
LOC: M.ERS 18:52 → M.2W 20:50 → M.TBA-ER 20:50 → M.2W 21:37 → M.3W 07-14 19:18
PROVIDERS: Family Medicine; Internal Medicine Nephrology; ADMIT Internal Medicine
PROC: 5A09357 Assistance with Respiratory Ventilation, Less than 24 Consecutive Hours, Continuous Positive Airway Pressure (ICD-10-PCS; principal; 2017-07-08)
PROC: 5A09357 Assistance with Respiratory Ventilation, Less than 24 Consecutive Hours, Continuous Positive Airway Pressure (ICD-10-PCS; 2017-07-09)
PROC: 5A09357 Assistance with Respiratory Ventilation, Less than 24 Consecutive Hours, Continuous Positive Airway Pressure (ICD-10-PCS; 2017-07-10)
PROC: 5A09357 Assistance with Respiratory Ventilation, Less than 24 Consecutive Hours, Continuous Positive Airway Pressure (ICD-10-PCS; 2017-07-11)
PROC: 5A09357 Assistance with Respiratory Ventilation, Less than 24 Consecutive Hours, Continuous Positive Airway Pressure (ICD-10-PCS; 2017-07-12)
PROC: 5A09357 Assistance with Respiratory Ventilation, Less than 24 Consecutive Hours, Continuous Positive Airway Pressure (ICD-10-PCS; 2017-07-13)
PROC: 5A09357 Assistance with Respiratory Ventilation, Less than 24 Consecutive Hours, Continuous Positive Airway Pressure (ICD-10-PCS; 2017-07-14)
DX: N17.9 Acute kidney failure, unspecified (principal); J96.21 Acute and chronic respiratory failure with hypoxia; I50.33 Acute on chronic diastolic (congestive) heart failure; I13.0 Hypertensive heart and chronic kidney disease with heart failure and stage 1 through stage 4 chronic kidney disease, or unspecified chronic kidney disease; J44.1 Chronic obstructive pulmonary disease with (acute) exacerbation; R65.10 Systemic inflammatory response syndrome (SIRS) of non-infectious origin without acute organ dysfunction; L02.31 Cutaneous abscess of buttock; J98.11 Atelectasis; Z68.41 Body mass index [BMI] 40.0-44.9, adult; N18.4 Chronic kidney disease, stage 4 (severe); E66.01 Morbid (severe) obesity due to excess calories; I25.10 Atherosclerotic heart disease of native coronary artery without angina pectoris; I48.91 Unspecified atrial fibrillation; E11.22 Type 2 diabetes mellitus with diabetic chronic kidney disease; G47.33 Obstructive sleep apnea (adult) (pediatric); E03.9 Hypothyroidism, unspecified; R31.9 Hematuria, unspecified; E11.42 Type 2 diabetes mellitus with diabetic polyneuropathy; Z95.1 Presence of aortocoronary bypass graft; Z91.040 Latex allergy status; Z79.899 Other long term (current) drug therapy; Z79.82 Long term (current) use of aspirin; Z82.49 Family history of ischemic heart disease and other diseases of the circulatory system; Z87.891 Personal history of nicotine dependence; Z95.5 Presence of coronary angioplasty implant and graft; I25.2 Old myocardial infarction

== ENCOUNTER 2017-08-15 19:12 | Emergency (ER) | payer OTHER ==
[~2017-08-15] VITALS: Ht 170.2 cm; Wt 132.0 kg
[~2017-08-15 19:12] MED LIST changes: +GABAPENTIN 100100 MG PO; +LEVAQUIN 500 M500 M2 PO; +LIDOPATCH1 EACH TOP; +PREDNISONE 20 M20 MG PO; +TOPROL XL50 MG PO
[2017-08-15] MEDS ORDERED: NITROGLYCERIN0.4 MG SUBLING (19:28)
[2017-08-15] MEDS ORDERED: DEMADEX20 MG PO (19:28)
[2017-08-15] MEDS ORDERED: OXYCODONE HCL 55 MG PO (19:29)
[2017-08-15] MEDS ORDERED: GABAPENTIN 100100 MG PO (19:30)
[2017-08-15] MEDS ORDERED: HYDRALAZINE 2525 MG PO ×2 (19:30)
[2017-08-15 20:01] LABS: HEMATOCRIT 35.3 % (37.0-47.0); HEMOGLOBIN 11.3 gm/dL (12.0-15.0); MCH 27.8 pg (26.0-34.0); MCV 86.9 fL (80.0-100.0); MPV 8.9 fl. (7.2-11.1); NUCLEATED RBCS 0 /100WBC; PLATELET COUNT* 273 thou/uL (150-400); RBC 4.06 mil/uL (4.20-5.00); RDW-CV 18.5 % (10.5-14.5); WBC 16.5 thou/uL (4.0-11.0)
[2017-08-15 20:13] LABS: ANION GAP 6 mmol/L (7-16); BUN 123 mg/dL (7-18); CALCIUM 9.7 mg/dL (8.5-10.1); CHLORIDE 95 mmol/L (98-107); CO2 40 mmol/L (21-32); CREATININE 3.7 mg/dL (0.6-1.3); GLUCOSE 173 mg/dL (70-99); POTASSIUM 3.6 mmol/L (3.5-5.1); SODIUM 141 mmol/L (136-145)
[2017-08-15 20:16] LABS: ABSOLUTE EOSINOPHILS 0.2 thou/uL (0.0-0.7); ABSOLUTE LYMPHOCYTES 1.5 thou/uL (0.8-5.3); ABSOLUTE MONOCYTES 0.8 thou/uL (0.0-1.2); PLATELET ESTIMATE ADEQUATE
[2017-08-15 20:20] LABS: ALKALINE PHOSPHATASE 78 U/L (46-116); SGOT 24 U/L (15-37); SGPT 16 U/L (30-65); TOTAL BILIRUBIN 0.3 mg/dL (<0.1-1.0); TOTAL PROTEIN 7.8 g/dL (6.4-8.2); TROPONIN-I LEVEL <0.06 ng/mL (<0.06)
[2017-08-15 21:47] LABS: URINE BILIRUBIN NEGATIVE (Negative); URINE BLOOD NEGATIVE (Negative); URINE CLARITY CLEAR; URINE COLOR YELLOW; URINE GLUCOSE-RANDOM NEGATIVE (Negative); URINE KETONES NEGATIVE (Negative); URINE LEUKOCYTES-REFLEX NEGATIVE (Negative); URINE NITRITE-REFLEX NEGATIVE (Negative); URINE PROTEIN NEGATIVE (Negative); URINE UROBILINOGEN 0.2 E.U./dl (0.2-1.0)
[2017-08-15 21:58] LABS: AMP/METHAMP Negative (Negative); BARBITURATES Negative (Negative); BENZODIAZEPINES Negative (Negative); COCAINE Negative (Negative); METHADONE Negative (Negative); OPIATES Negative (Negative); PCP Negative (Negative); THC Negative (Negative)
[2017-08-15 22:55] VITALS: BP 170/54
--- NOTE | 2017-08-16 09:39 | EKG ---
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 : 1960 Requested By: Sloane Frausto Order Number: [id number] MD: Alexis Simons Measurements Intervals Hardy Rate: 56 P: -55 UT: 243 QRS: -73 QRSD: 146 T: 75 QT: 495 QTc: 478 Interpretive Statements Sinus or ectopic atrial rhythm Prolonged UT interval Right bundle branch block Inferior infarct, old Compared to ECG 07/09/2017 13:38:42 Ectopic atrial rhythm now present Sinus rhythm no longer present Atrial premature complex(es) no longer present Myocardial infarct finding still present Electronically Signed On 08-16-2017 9:39:40 CDT by Alexis Simons [email or web address] <ELECTRONICALLY SIGNED> By: Alexis Simons MD, FAC 08/16/17 0939 29 29 Alexis Simons MD, FAC /EPI
== END 2017-08-15 22:56 | disposition home or self-care (01) ==
LOC: M.ERS 19:12
PROVIDERS: Personal Emergency Response Attendant
DX: E11.22 Type 2 diabetes mellitus with diabetic chronic kidney disease (principal); N18.4 Chronic kidney disease, stage 4 (severe); E11.641 Type 2 diabetes mellitus with hypoglycemia with coma; I13.0 Hypertensive heart and chronic kidney disease with heart failure and stage 1 through stage 4 chronic kidney disease, or unspecified chronic kidney disease; I50.9 Heart failure, unspecified; I48.91 Unspecified atrial fibrillation; J44.9 Chronic obstructive pulmonary disease, unspecified; E03.9 Hypothyroidism, unspecified; I25.10 Atherosclerotic heart disease of native coronary artery without angina pectoris; G47.30 Sleep apnea, unspecified; K50.90 Crohn's disease, unspecified, without complications; Z86.14 Personal history of Methicillin resistant Staphylococcus aureus infection; E66.01 Morbid (severe) obesity due to excess calories; Z68.42 Body mass index [BMI] 45.0-49.9, adult; Z79.4 Long term (current) use of insulin; Z91.040 Latex allergy status

== ENCOUNTER 2017-08-24 09:07 | Emergency (ER) | payer OTHER ==
[~2017-08-24] VITALS: Ht 170.2 cm; Wt 131.5 kg
[~2017-08-24 09:07] MED LIST changes: +DEMADEX20 MG PO; +NITROGLYCERIN0.4 MG SUBLING
[2017-08-24] MEDS ORDERED: NORCO 5-325 TA1 EACH PO (10:05)
[2017-08-24 10:40] VITALS: BP 152/45
== END 2017-08-24 11:22 | disposition home or self-care (01) ==
LOC: M.ERS 09:07
DX: S82.892A Other fracture of left lower leg, initial encounter for closed fracture (principal); S92.332A Displaced fracture of third metatarsal bone, left foot, initial encounter for closed fracture; I48.91 Unspecified atrial fibrillation; E03.9 Hypothyroidism, unspecified; J44.9 Chronic obstructive pulmonary disease, unspecified; I25.10 Atherosclerotic heart disease of native coronary artery without angina pectoris; G47.30 Sleep apnea, unspecified; K50.90 Crohn's disease, unspecified, without complications; I13.0 Hypertensive heart and chronic kidney disease with heart failure and stage 1 through stage 4 chronic kidney disease, or unspecified chronic kidney disease; E11.22 Type 2 diabetes mellitus with diabetic chronic kidney disease; N18.4 Chronic kidney disease, stage 4 (severe); I50.30 Unspecified diastolic (congestive) heart failure; E66.01 Morbid (severe) obesity due to excess calories; Z68.42 Body mass index [BMI] 45.0-49.9, adult; Z86.14 Personal history of Methicillin resistant Staphylococcus aureus infection; Z79.4 Long term (current) use of insulin; Z91.040 Latex allergy status; Z95.5 Presence of coronary angioplasty implant and graft; W18.39XA Other fall on same level, initial encounter; Y93.89 Activity, other specified; Y92.89 Other specified places as the place of occurrence of the external cause; Y99.8 Other external cause status

== ENCOUNTER 2017-08-25 22:53 | Inpatient (IN) | payer OTHER ==
[~2017-08-25] VITALS: Ht 170.2 cm; Wt 134.3 kg
[2017-08-25 22:55] VITALS: BP 185/68
[2017-08-25 23:22] LABS: ABSOLUTE BASOPHILS 0.1 thou/uL (0.0-0.2); ABSOLUTE EOSINOPHILS 0.3 thou/uL (0.0-0.7); ABSOLUTE LYMPHOCYTES 2.4 thou/uL (0.8-5.3); ABSOLUTE MONOCYTES 1.1 thou/uL (0.0-1.2); ABSOLUTE NEUTROPHILS 11.3 thou/uL (1.6-8.1); BASOPHILS 0.4 %; HEMATOCRIT 34.9 % (37.0-47.0); HEMOGLOBIN 11.2 gm/dL (12.0-15.0); LYMPHOCYTES 15.8 %; MCH 27.6 pg (26.0-34.0); MCV 86.1 fL (80.0-100.0); MONOCYTES 7.1 %; NUCLEATED RBCS 0 /100WBC; PLATELET COUNT* 238 thou/uL (150-400); POLYS 74.7 %; RBC 4.05 mil/uL (4.20-5.00); RDW-CV 17.8 % (10.5-14.5); WBC 15.2 thou/uL (4.0-11.0)
[2017-08-25 23:37] LABS: ANION GAP 6 mmol/L (7-16); BUN 185 mg/dL (7-18); CHLORIDE 94 mmol/L (98-107); CO2 41 mmol/L (21-32); CREATININE 3.1 mg/dL (0.6-1.3); GLUCOSE 111 mg/dL (70-99); POTASSIUM 3.5 mmol/L (3.5-5.1); SODIUM 141 mmol/L (136-145)
[2017-08-25 23:40] LABS: ALBUMIN 3.4 g/dL (3.4-5.0); ALKALINE PHOSPHATASE 90 U/L (46-116); SGOT 26 U/L (15-37); SGPT 17 U/L (30-65); TOTAL BILIRUBIN 0.3 mg/dL (<0.1-1.0); TOTAL PROTEIN 8.9 g/dL (6.4-8.2); TROPONIN-I LEVEL <0.06 ng/mL (<0.06)
[2017-08-25 23:43] LABS: URINE BILIRUBIN NEGATIVE (Negative); URINE BLOOD TRACE (Negative); URINE CLARITY CLEAR; URINE COLOR YELLOW; URINE GLUCOSE-RANDOM NEGATIVE (Negative); URINE KETONES NEGATIVE (Negative); URINE LEUKOCYTES-REFLEX NEGATIVE (Negative); URINE NITRITE-REFLEX NEGATIVE (Negative); URINE PROTEIN 1+ (Negative); URINE UROBILINOGEN 0.2 E.U./dl (0.2-1.0)
[2017-08-26 02:42] VITALS: BP 162/48
[2017-08-26 03:00] VITALS: BP 159/52
--- NOTE | 2017-08-26 04:48 | NUR ---
ADMITTED TO 227 @ 0250. ORTHOPEDIC BOOT IN PLACE TO LLE FOR ANKLE FRACTURE. BOOT REMOVED FOR SKIN OBSERVATION, NO OPEN WOUNDS NOTED, LATERAL DISTAL PORTION OF FOOT NOTED TO BE BRUISED AND SWOLLEN. SACRAL PRESSURE WOUND NOTED, PHOTOS TAKEN FOR WOUND DOCUMENTATION AND WOUND RN CONSULTED. PT DENIES CHEST PAIN AND SOA. SEE ASSESSMENT FOR FURTHER DETAILS. PT ORIENTED TO CALL LIGHT USE AND ROOM. CALL LIGHT WITHIN REACH.
--- NOTE | 2017-08-26 05:28 | NUR ---
ROUTINE NEURO CONSULT CALLED TO ANSWERING SERVICE
[2017-08-26 05:34] LABS: ABSOLUTE BASOPHILS 0.1 thou/uL (0.0-0.2); ABSOLUTE EOSINOPHILS 0.3 thou/uL (0.0-0.7); ABSOLUTE LYMPHOCYTES 1.9 thou/uL (0.8-5.3); ABSOLUTE MONOCYTES 0.9 thou/uL (0.0-1.2); ABSOLUTE NEUTROPHILS 10.5 thou/uL (1.6-8.1); BASOPHILS 0.9 %; EOSINOPHILS 2.3 %; HEMATOCRIT 31.2 % (37.0-47.0); LYMPHOCYTES 13.8 %; MCH 28.1 pg (26.0-34.0); MCHC 32.2 g/dL (28.0-37.0); MCV 87.5 fL (80.0-100.0); MONOCYTES 6.7 %; MPV 9.7 fl. (7.2-11.1); NUCLEATED RBCS 0 /100WBC; PLATELET COUNT* 201 thou/uL (150-400); POLYS 76.3 %; RBC 3.56 mil/uL (4.20-5.00); RDW-CV 17.8 % (10.5-14.5); WBC 13.8 thou/uL (4.0-11.0)
[2017-08-26 06:04] LABS: CALCIUM 9.8 mg/dL (8.5-10.1); POTASSIUM 3.8 mmol/L (3.5-5.1); TOTAL BILIRUBIN 0.3 mg/dL (<0.1-1.0); TOTAL PROTEIN 6.8 g/dL (6.4-8.2)
[2017-08-26 08:00] VITALS: BP 133/44
[2017-08-26 10:06] LABS: PO2 68.1 mmHg (75.0-100.0); pH 7.376 (7.340-7.450)
[2017-08-26 10:13] LABS: PCO2 73.3 mmHg (35.0-45.0)
--- NOTE | 2017-08-26 10:38 | EKG ---
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: : 1960 Requested By: Flory Patel Order Number: [id number] MD: Manuel Elizondo Measurements Intervals [place]phant Rate: 81 P: NM: QRS: -41 QRSD: 156 T: 86 QT: 509 QTc: 591 Interpretive Statements Atrial fibrillation intermittent v paced RBBB and LAFB Compared to ECG 08/15/2017 20:30:07 Ventricular premature complex(es) now present Left anterior fascicular block now present Ectopic atrial rhythm no longer present First degree AV block no longer present Myocardial infarct finding no longer present Electronically Signed On 08-26-2017 10:38:23 CDT by Manuel Elizondo [email or web address] <ELECTRONICALLY SIGNED> By: Manuel Elizondo MD, FACC 08/26/17 1038 2358 [id number] Manuel Elizondo MD, FAC /EPI
--- NOTE | 2017-08-26 11:00 | NUR ---
MET WITH PT TO DISCUSS HOME SITUATION/DC PLANNING. PT LIVES WITH HER MOM. IN JULY SHE WENT TO [place]. STATES SHE WAS THERE A MONTH AND NOW AT HOME WITH [facility]. PT HAS WALKER, BIPAP, O2 AND NEBULIZER THRU [facility]. SHE STATED SHE THOUGHT SHE HAD BEEN DOING FAIRLY WELL AT HOME WITH HER MOM. CALL PLACED TO MOM/RADHA BUT HAD TO LEAVE MESSAGE. DISCUSSED WITH NURSE. PT PLANS TO RETURN HOME AT OR. WILL FOLLOW
[2017-08-26 11:24] VITALS: BP 139/38
--- NOTE | 2017-08-26 11:28 | NUR ---
ASSUMED CARE OF PATIENT THIS AM AT 0730. PATIENT IS DROWSY, SOMEWHAT SLOW TO RESPOND TO QUESTIONS BUT ANSWERS QUESTIONS APPROPRIATELY. TELE SHOWS SR WITH BBB 1DAVB AND BIGEMINY PACS. PATIENT C/O PAIN IN HER RIGHT ANKLE. SHE CONTINUES TO HAVE UPPER BODY MOTOR TICS. DR OQUENDO IN TO ROUND AND ORDERS WRITTEN. ABGS DRAWN AND RESULTS CALLED TO PATIENT MEDICATED FOR PAIN X 1 AND INSTRUCTED TO USE CPAP WHILE IN BED AND THE CHANGE IN FREQUENCY OF HER PAIN MEDICATION TO IMPROVE HER CO2 LEVELS. LUIS ANGEL IS TO DD. PATIENT ASSISTED TO REPOSITION Q 2 HR. FSBS MONITORED ORDERED. WILL CONTINUE TO MONITOR PATIENT COMFORT AND ORIENTATION.
--- NOTE | 2017-08-26 13:38 | NUR ---
Nutrition: Consult received for "weight change." Per [employer], pt usually weighs 290# x past several months. Pt also denied wt loss at this time. She stated she didn't feel like eating her lunch tray, but she was going to try to. H/o CHF, COPD, renal failure, CKD, crohns, multiple falls. RX: insulin, stain, aspirin, CPAP. We have discussed Renal diet before. BUN 169, creat 3, BG 200s, albumin 3. Pt has sacral wound. Appears at low to mild nutrition risk at this time.
[2017-08-26 16:00] VITALS: BP 148/55
[2017-08-26 20:00] VITALS: BP 145/50
[2017-08-27] VITALS (7 sets, daily range): BP systolic 127–162; BP diastolic 47–119
--- NOTE | 2017-08-27 04:42 | NUR ---
ASSUMED PT CARE AT 1930, NURSING ASSESSMENT COMPLETED AT START OF SHIFT. PT VOICED NO CONCERNS AT START OF SHIFT. TRACING SINUS BRADICARDIA WITH 1ST DEGREE AV BLOCK WITH PACS THIS SHIFT. Q2H REPOSITIONING COMPLETED, HOURLY ROUNDING COMPLETED, FALL PRECAUTIONS IN PLACE. PT WEARING CPAP THIS SHIFT. CALL LIGHT REMAINS WITHIN REACH. PRN PAIN MEDICATION ADMINISTERED X1 THIS SHIFT FOR PAIN, SEE EMAR FOR DOCUMENTATION.
[2017-08-27 05:03] LABS: ABSOLUTE BASOPHILS 0.1 thou/uL (0.0-0.2); ABSOLUTE EOSINOPHILS 0.3 thou/uL (0.0-0.7); ABSOLUTE LYMPHOCYTES 1.8 thou/uL (0.8-5.3); ABSOLUTE MONOCYTES 0.9 thou/uL (0.0-1.2); ABSOLUTE NEUTROPHILS 10.1 thou/uL (1.6-8.1); BASOPHILS 0.6 %; EOSINOPHILS 2.6 %; HEMATOCRIT 34.2 % (37.0-47.0); HEMOGLOBIN 10.7 gm/dL (12.0-15.0); LYMPHOCYTES 13.4 %; MCH 27.8 pg (26.0-34.0); MCHC 31.3 g/dL (28.0-37.0); MCV 88.8 fL (80.0-100.0); MONOCYTES 6.8 %; MPV 10.1 fl. (7.2-11.1); NUCLEATED RBCS 0 /100WBC; PLATELET COUNT* 203 thou/uL (150-400); POLYS 76.6 %; RBC 3.85 mil/uL (4.20-5.00); RDW-CV 18.1 % (10.5-14.5); WBC 13.2 thou/uL (4.0-11.0)
[2017-08-27 05:10] LABS: CALCIUM 9.9 mg/dL (8.5-10.1); CREATININE 2.6 mg/dL (0.6-1.3); POTASSIUM 3.8 mmol/L (3.5-5.1)
--- NOTE | 2017-08-27 10:53 | NUR ---
WOUND CARE NOTE: CONSULT RECEIVED FOR SACRAL PRESSURE ULCER PATIENT PRESENTS WHIT ABRASIONS TO BILATERAL BUTTOCKS, BELIEVE THIS IS RELATED TO BRIEF USE. LEFT BUTTOCKS PRESENTS WITH A STABLE SCAB MEASURING 0.5X0.3. SCAR TISSUE TO BALDOMERO-WOUND. DO NOT BELIEVE THESE ARE PRESSURE ULCERS. RECOMMEND LIMIT LAYERS OF LINEN BARRIER OINTMENT BID AND PRN TO BILATERAL BUTTOCKS NO BRIEFS WHEN IN BED WILL SIGN OFF AT THIS TIME, PLEASE RECONSULT IF NEEDED
--- NOTE | 2017-08-27 12:12 | NUR ---
MET WITH PT'S MOM AGAIN, RECALLED MACI/RADHA TO REQUEST SHE SCREEN PT FOR MEDICAID. MOM AND PT STILL INTERESTED IN [place]. AWAIT THERAPY EVALS AND THEN WILL SEND REFERRAL
--- NOTE | 2017-08-27 12:14 | NUR ---
ASSUMED CARE OF PATIENT AFTER REPORT THIS MORNING. PATIENT SLEEPING, SOMEWHAT DIFFICULTY TO AROUSE, BUT ORIENTED APPROPRIATELY WHEN ASK ORIENTATION QUESTIONS. PATIENT TAKES A LONG TIME TO RESPOND TO QUESTIONS AND SOMETIMES FALLS ASLEEP BEFORE ANSWERING. PHYSICAL ASSESSMENT COMPLETED AND CHARTED. VITAL SIGNS STABLE. OXYGEN SATURATION WITHIN NORMAL LIMITS ON 2 LPM PER NASAL CANULA. GIVEN SCHEDULED MEDICATIONS, SEE EMAR FOR DOCUMENTATION. PATIENT HAS BEEN ENCOURAGED TO PARTICIPATE WITH PT/OT BUT CANNOT REMAIN AWAKE. PATIENT HAS BEEN TURNED FREQUENTLY. PATIENT'S BUTTOCKS WAS ASSESSED THIS MORNING WITH WOUND CARE NURSE. WOUND CARE NURSE DOES NOT THINK PATIENT HAS A PRESSURE ULCER BUT MAYBE A CALLUS FROM A PREVIOUS WOUND. BARRIER CREAM IN ROOM FOR APPLICATION WITH TURNS APPROPRIATE. PATIENT HAS NOT BEEN OUT OF BED THIS SHIFT. USES CALL LIGHT APPROPRIATELY, WITHIN REACH. DENIES NEEDS AT THIS TIME. NURSING WILL CONTINUE TO MONITOR.
--- NOTE | 2017-08-27 12:19 | CON ---
[address] [address] CONSULTATION Name: FRANCISCA WYMAN Estefani Room: [place] [address] ADM IN .R.#: [id number] Admission: 08/26/17 Attend Phys: Marquita Mccoy MD Discharge: Date of : 56 Report #: [id number] THIS REPORT FOR: //name// CC: Juan Mccoy DATE OF SERVICE: 08/26/2017 REQUESTING PHYSICIAN: Dr. Ortez. REASON FOR CONSULTATION: Acute kidney injury. HISTORY OF PRESENT ILLNESS: The patient is a very pleasant 57-year-old female known to us from previous admission. She was admitted with some shakiness and feeling weak. When they checked her in the Emergency Room, they found that her BUN was 185 and creatinine was 3.1. She received 1 liter of fluids in the ER, her BUN came down immediately to 169 and creatinine is 3.0. Her baseline creatinine is around 2.5. PAST MEDICAL HISTORY: Significant for chronic kidney disease stage 3B, morbid obesity, history of diastolic congestive heart failure, history of multiple falls, history of metatarsal fracture, and history of chronic obstructive pulmonary disease with CO2 retention. MEDICATIONS: Prior to admission reviewed from my standpoint, she was on metolazone 5 mg a day. SOCIAL HISTORY: No current tobacco or alcohol abuse. She used to smoke, but quit several years ago. FAMILY HISTORY: Noncontributory. REVIEW OF SYSTEMS: Positive for being very thirsty and weak. She denies having any chest pain or shortness of breath. No nausea, no vomiting, no diarrhea. She does not have any swelling. No changes in visual or hearing acuity. PHYSICAL EXAMINATION: GENERAL: She is awake, alert, oriented, in no acute distress. She had some flapping tremor yesterday, was much better now. VITAL SIGNS: Blood pressure 139/38, heart rate is 58, afebrile. HEENT: Pupils are round. Her oral mucosa is dry. NECK: Fatty. LUNGS: Clear. CARDIOVASCULAR: Regular rate. ABDOMEN: Obese. LOWER EXTREMITIES: [place] [address] CONSULTATION Name: FRANCISCA WYMAN Estefani Room: [address] IN [facility]#: [id number] Admission: 08/26/17 Attend Phys: Marquita Mccoy MD Discharge: Date of : 56 Report #: [id number] ASSESSMENT: A 57-year-old female admitted with an acute kidney injury on top of the chronic kidney disease. On exam, she is volume depleted. Her renal function also has improved with IV fluids. She received 1 liter of NS in the ER. Right now, she is not receiving IV fluids. I am planning to put her on NS at 100 mL an hour. Monitor renal function carefully and keep holding her diuretics for now. Thank you very much for asking my opinion on acute kidney injury of this patient. <ELECTRONICALLY SIGNED> By: Efrain Garces MD 08/27/17 1219 1203 [id number] Garces MD /[facility]
[2017-08-27 15:28] LABS: BE 6.9 mmol/L (-2 to +3); HCO3 30.7 mmol/L (22.0-26.0); PCO2 40.7 mmHg (35.0-45.0); pH 7.496 (7.340-7.450)
--- NOTE | 2017-08-27 17:43 | NUR ---
PATIENT REMAINS ALERT AND ORIENTED APPROPRIATELY. HAS SAT ON SIDE OF BED A FEW TIMES THIS AFTERNOON. GIVEN SCHEDULED MEDICATIONS, SEE EMAR FOR DOCUMENTATION. ABGS DRAWN AND PATIENT TAKEN OFF OF OXYGEN DUE TO O2 BEING 127, SEE LABS. OXYGEN SATURATION 93% ON ROOM AIR. PATIENT SITTING AT BEDSIDE ATTEMPTING TO EAT DINNER AT THIS TIME. REQUIRES ENCOURAGEMENT TO EAT. PATIENT'S REPEATEDLY STATES HOLD ON WHILE TRYING TO FEED HER. GAVE PATIENT THE FORK AND SHE TOOK ONE BITE. SAID SHE WOULD CONTINUE TO EAT. WILL CHECK ON HER. WILL DC PLASENCIA CATHETER BEFORE SHIFT CHANGE SINCE THERE IS NO INDICATION FOR THIS. CALL LIGHT WITHIN REACH. NURSING WILL CONTINUE TO MONITOR.
[2017-08-28] VITALS (7 sets, daily range): BP systolic 116–195; BP diastolic 48–91
--- NOTE | 2017-08-28 05:17 | NUR ---
ASSUMED PT CARE AT 1930, NURSING ASSESSMENT COMPLETED AT START OF SHIFT. PT VOICED NO CONCERNS, PT TRACING SR WITH 1ST DEGREE AV BLOCK AND BUNDLE BRANCH BLOCK WITH PACS. PT VOICED NO CONCERNS, PT USED CPAP THIS SHIFT, Q2H REPOSITIONING COMPLETED, FALL PRECAUTIONS IN PLACE, CALL LIGHT WITHIN REACH. NO FALLS THIS SHIFT.
[2017-08-28 05:36] LABS: CREATININE 2.1 mg/dL (0.6-1.3); POTASSIUM 4.3 mmol/L (3.5-5.1)
[2017-08-28 11:35] LABS: BE 11.1 mmol/L (-2 to +3); HCO3 37.4 mmol/L (22.0-26.0); pH 7.426 (7.340-7.450)
[2017-08-28 11:36] LABS: PCO2 58.2 mmHg (35.0-45.0); PO2 54.6 mmHg (75.0-100.0)
--- NOTE | 2017-08-28 15:00 | NUR ---
CONTINUE TO FOLLOW, MET WITH PT THIS AM. ENCOURAGED HER TO WORK WITH THERAPY TODAY, SHE WAS AGREEABLE. WAS ABLE TO HAVE HER SIGN FORMS TO ALLOW [facility] TO ASSIST WITH MEDICAID J[place]. FORMS [facility]. ALSO GAVE PT'S MOM NUMBER TO CALL RADHA AT [facility] TO DISCUSS. F/U CALL WITH RADHA, SHE WAS ABLE TO CONNECT WITH MOM AND RECEIVED FORMS. CALL TO [facility], FAXED REFERRAL FOR SNF. PT STATED SHE WAS ONLY INTERESTED IN SNF AT THIS TIME. WILL FOLLOW. MP WILL NEED TO GET INSURANCE AUTH, REMINDED PT AND MOM THAT SHE IS INTO HER COPAY DAYS BUT IF QUALIFIES FOR MEDICAID, THAT WILL HELP COVER THE COPAY COST.
--- NOTE | 2017-08-28 17:08 | NUR ---
ASSUMED CARE OF PT THIS AM ASSESSED AND DOCUMENTED. SEE CHART. PT CONT ON ISO FOR HX OF MRSA. SHE IS A&O TIMES 3. PT UP IN BEDSIDE CHAIR THIS SHIFT. PAIN MEDICATION GIVEN AND ICE PACK USED FOR L FOOT AND WAS EFFECTIVE. MOTHER AND SISTER HAVE BEEN AT BEDSIDE. EDUCATION GIVEN ON DEMAND. PT HAS LAUGHED AND CARRIED ON CONVERSATIONS WITH ME THROUGH OUT THE DAY. SHE USES BI PAP WHILE SLEEPING.
[2017-08-29] VITALS (7 sets, daily range): BP systolic 127–187; BP diastolic 38–56
--- NOTE | 2017-08-29 03:57 | NUR ---
ASSUMED PT CARE AT 1930. NURSING ASSESSMENT COMPLETED AT START OF SHIFT. 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 PT VOICED NO CONCERNS THIS SHIFT. HOURLY ROUNDING COMPLETED, HIGH FALL PRECAUTIONS IN PLACE. PT ON CPAP THIS SHIFT. PT SLOWLY PROGRESSING TOWARDS GOALS.
[2017-08-29 05:24] LABS: ABSOLUTE BASOPHILS 0.1 thou/uL (0.0-0.2); ABSOLUTE EOSINOPHILS 0.3 thou/uL (0.0-0.7); ABSOLUTE LYMPHOCYTES 1.5 thou/uL (0.8-5.3); ABSOLUTE MONOCYTES 0.9 thou/uL (0.0-1.2); ABSOLUTE NEUTROPHILS 7.8 thou/uL (1.6-8.1); BASOPHILS 0.8 %; EOSINOPHILS 3.3 %; HEMATOCRIT 30.7 % (37.0-47.0); HEMOGLOBIN 9.8 gm/dL (12.0-15.0); LYMPHOCYTES 13.8 %; MCHC 31.8 g/dL (28.0-37.0); MCV 87.9 fL (80.0-100.0); MONOCYTES 8.7 %; MPV 9.4 fl. (7.2-11.1); NUCLEATED RBCS 0 /100WBC; PLATELET COUNT* 201 thou/uL (150-400); POLYS 73.4 %; RBC 3.49 mil/uL (4.20-5.00); WBC 10.6 thou/uL (4.0-11.0)
[2017-08-29 05:41] LABS: ALBUMIN 2.6 g/dL (3.4-5.0); CALCIUM 9.5 mg/dL (8.5-10.1); CREATININE 1.9 mg/dL (0.6-1.3); POTASSIUM 3.7 mmol/L (3.5-5.1); TOTAL BILIRUBIN 0.4 mg/dL (<0.1-1.0); TOTAL PROTEIN 7.1 g/dL (6.4-8.2)
--- NOTE | 2017-08-29 08:15 | EEG ---
[address] [address] EEG STUDY REPORT Name: FRANCISCA WYMAN Room: [address] IN M.R.#: [id number] Admission: 08/26/17 Attend Phys: Marquita Mccoy MD Discharge: Date of : 56 Report #: [id number] THIS REPORT FOR: //name// CC: Juan Mccoy DATE OF SERVICE: 08/26/2017 This patient is being evaluated for history of falls and jerking. EEG was done by placing the electrodes by standard 10-20 system of electrode placement. Both referential and sequential montages were used for recording. Background activity in this patient's EEG is about 8-9 Hz and 30 microvolt. This patient goes to sleep that is associated with bilaterally symmetrical sleep spindle and vertex sharp waves. Photic stimulation is unremarkable. No active epileptiform activity was noticed, but the patient's EEG has a lot of artifact. IMPRESSION: Moderately abnormal EEG because it is slow and poorly formed on both sides. That is a nonspecific abnormality, which can occur with encephalopathy, effect of psychotropic medication, dementia, etc. Clinical correlation and further workup is recommended. <ELECTRONICALLY SIGNED> By: Elvis Canas MD 08/29/17 0815 0823 [id number] Canas MD /nt
--- NOTE | 2017-08-29 08:15 | CON ---
[address] [address] CONSULTATION Name: FRANCISCA WYMAN Room: [place] [address] ADM IN .R.#: [id number] Admission: 08/26/17 Attend Phys: Marquita Mccoy MD Discharge: Date of : 56 Report #: [id number] THIS REPORT FOR: //name// CC: Juan Mccoy DATE OF SERVICE: 08/26/2017 HISTORY OF PRESENT ILLNESS: This is a 57-year-old female patient who was evaluated by me for recurrent falls. She said she falls 3-4 times a day. This is because she has some jerking. Clinically, she is having myoclonic jerking. She does have problem with respiratory problems. It looks like she also has renal problems. She has one time fracture of her ankle. These falls come spontaneously, but she may be having some jerking associated with it. REVIEW OF SYSTEMS: Positive for what she describes as tremors. She has a history of diabetes, morbid obesity, hypertension, carpal tunnel syndrome, history of atrial fibrillation, hypothyroidism, COPD, kidney disease, obstructive sleep apnea, chronic hypoxic failure. This is from the record. When I talked to her, she does not provide much history because she keeps going back to sleep. She is on gabapentin, although only a small dose of gabapentin of either 100 mg t.i.d. or b.i.d. A 14-point review of system was carried out, otherwise was noncontributory. PAST MEDICAL HISTORY: Positive for respiratory problem. FAMILY HISTORY: Negative for early age stroke. SOCIAL HISTORY: She does not smoke or drink any alcohol. PHYSICAL EXAMINATION: Limited because she is not able to cooperate. She knows what month it is. She was able to tell me date, she falls asleep. Her speech is okay when she wakes up, but otherwise she falls asleep in between. Memory and fund of knowledge is very difficult to tell because she is not able to cooperate. Cranial nerve examination 2-12 was attempted and that is again difficult to tell, but does not appear to be showing anything, noncontributory. She moves all 4 extremities. Examination in the left lower extremity is difficult because she has a fracture there and brace there, but she moves both side. I think she has a position sense. Reflexes are diminished. She does not have any fpketl-oc-zrts abnormality. She could not stay long enough to look at her fundus. She is morbidly obese. She does not have any dysmorphic features of eyes, ears and face. Her vision and hearing look adequate. She does have some rhonchi. Cardiac examination is unremarkable. Pulses in the right leg is palpable. She has no edema there. Her temperature is 97.4. Her pulse is 73. Her respirations 18. Her blood pressure is 159/52. [place] [address] CONSULTATION Name: FRANCISCA WYMAN Room: [address] IN [facility]#: [id number] Admission: 08/26/17 Attend Phys: Marquita Mccoy MD Discharge: Date of : 56 Report #: [id number] LABORATORY DATA: Indicates increased white count of 13.8. Her pCO2 was 73.3. She did have a CT scan of the head, which did not show any acute process. IMPRESSION: She is having pretty significant myoclonus, which is most likely because of high pCO2. Some contribution may be there from gabapentin. Even if she is on a small dose, but that can contribute to the symptom with renal failure with this patient has, RECOMMENDATIONS: 1. We will get an EEG done. 2. I will suggest working on her systemic problem, especially respiratory and renal. 3. We will follow up this patient with you and try to reach family. I explained all of this to the patient, but I am not sure if she understands things because she is pretty sleepy. More than 50 minutes of time was spent taking care of this patient today and majority of that time was spent counseling the patient and coordinating her care. <ELECTRONICALLY SIGNED> By: Elvis Canas MD 08/29/17 0815 1043 1246Elvis Canas MD /nt
--- NOTE | 2017-08-29 09:26 | NUR ---
ASSUMED CARE OF PATIENT AFTER REPORT THIS MORNING. PATIENT AWAKE, ALERT, AND ORIENTED APPROPRIATELY. USING CUES AROUND THE ROOM TO ASSIST WITH ORIENTATION. SLOW TO ANSWER QUESTIONS BUT ANSWERS ARE APPROPRIATE. PHYSICAL ASSESSMENT COMPLETED AND CHARTED. BLOOD PRESSURE HYPERTENSIVE, OTHER VITAL SIGNS STABLE. OXYGEN SATURATION WITHIN NORMAL LIMITS ON 2 LPM PER NASAL CANULA. GIVEN SCHEDULED MEDICATIONS, INCLUDING BLOOD PRESSURE MEDS, SEE EMAR FOR DOCUMENTATION. WILL REASSESS BLOOD PRESSURE AT LATER TIME. TRANSFERS AND AMBULATES WITH ASSISTANCE FROM STAFF. HAS NOT USED CALL LIGHT YET THIS MORNING. WILL OBSERVE FREQUENTLY FOR NEEDS. ENCOURAGED PATIENT TO GET IN CHAIR THIS MORNING AND PATIENT STATED NO SHE WANTED TO GO BACK TO SLEEP. DENIES NEEDS AT THIS TIME. CALL LIGHT WITHIN REACH. NURSING WILL CONTINUE TO MONITOR.
--- NOTE | 2017-08-29 09:39 | CON ---
[facility] [address] [place] [address] CONSULTATION Name: FRANCISCA WYMAN Room: [place] [address] ADM IN .R.#: [id number] Admission: 08/26/17 Attend Phys: Marquita Mccoy MD Discharge: Date of : 56 Report #: [id number] THIS REPORT FOR: //name// CC: Juan Mccoy DATE OF SERVICE: 08/27/2017 REQUESTING PHYSICIAN: Manny Ortez M.D. REASON FOR CONSULTATION: COPD with CO2 retention. DISCUSSION: The patient is a 57-year-old woman who is morbidly obese, has a history of underlying COPD as well as obstructive sleep apnea. She is not a very good historian. Much of the history is actually obtained from old records. She was admitted here after presenting to the Emergency Department on 08/26/2017. She has had quite a few visits here. Had fallen at home. She has had history of frequent falls with injuries. Seen in the ED. Was not very awake. Arterial blood gases did reveal worsening hypercapnia. On her CPAP overnight. The patient was on nasal cannula at the time I saw her. She has had a fair number of visits here. Was hospitalized inpatient last month. Was at rehab for a period of time. When she was at home, it became increasingly apparent she has had difficulty managing at home. She lives with her mother. It is not clear how much her mother is able to help with her care. She tells me she quit smoking 10 years ago. Has known sleep apnea. She does have a CPAP. She acknowledges to me that she has been sleeping with it every night. However, given her generalized weakness, lethargy, I questioned the reliability of that. She is on chronic O2 as well. In the past, she has been on prednisone taper, I am presuming she is off that now. Nebulizer with DuoNeb, it is not clear how compliant she has been with that. PAST MEDICAL HISTORY: She does have a history of morbid obesity. Systolic function in the past has appeared adequate. Carries a diagnosis of COPD, but unknown if she has had any PFTs done in the past. Has chronic kidney disease, stents placed in the past, hypothyroidism, carpal tunnel repair, issues with skin lesions, recent left ankle fracture. HOME MEDICATIONS: Difficult to clarify and question how compliant she has been. Has the DuoNeb up to 4 times a day, O2 at 2 liters, CPAP, also Paxil, baby aspirin, atorvastatin, insulin, MiraLax, Plavix, levothyroxine, Zyrtec, Demadex, p.r.n. nitroglycerin, p.r.n. oxycodone, hydralazine, and gabapentin. SOCIAL HISTORY: Former smoker. [place] [address] CONSULTATION Name: FRANCISCA WYMAN Room: [address] IN [facility].#: [id number] Admission: 08/26/17 Attend Phys: Marquita Mccoy MD Discharge: Date of : 56 Report #: [id number] REVIEW OF SYSTEMS: Difficult to obtain from her. She is lethargic. Intermittently, she does appear to have some mild tremors. Will arouse up. She will answer some questions intermittently. She does not appear in any acute distress. At times her speech is a little difficult to understand. She is currently denying any chest pain. Denies having any cough or sputum production. Denies being short of breath. Denies any nausea or vomiting. Does acknowledge she has had some issues with edema. PHYSICAL EXAMINATION: GENERAL APPEARANCE: Morbidly obese woman. Lethargic as noted. O2 running via nasal cannula. HEENT: Head is normocephalic. Sclerae nonicteric. Mucous membranes do look dry. NECK: Negative for any definite adenopathy. Is quite large. HEART: Irregularly irregular. Tones are distant. LUNGS: Show breath sounds to be markedly diminished. May have a few rhonchi. Not wheezing at the time of my exam. Because she has a very large body habitus, the breath sounds are diminished. She does have ecchymotic areas seen over her back, especially on the right side. No CVA tenderness. ABDOMEN: Very obese. Does not appear tender to palpation. She has no guarding. EXTREMITIES: She has 2+ edema of the lower extremities. Does have some ecchymotic areas and contusions noted. It is worse over the left foot. SKIN: Warm and dry. NEUROLOGIC: She is spontaneously moving all extremities. However, is quite slow to respond. LABORATORY AND X-RAY FINDINGS: A CT head was done without contrast. No acute findings were noted. No chest x-rays were done this admission. Earlier this month, a film did show some minimal atelectatic change seen in the right base. Heart size is upper limits of normal. Venous Dopplers done last month were negative for DVT. Arterial blood gases done yesterday morning, she had a pH of 7.38, pCO2 of 73, pO2 of 68, bicarbonate of 42 with a saturation of 92% on 2 liters. I have requested followup blood gases for today. Reviewing old blood gases, when she was here over a month ago, she was running with elevated pCO2s as well. Her chemistry, BUN is 142 this morning (down from 185), creatinine of 2.6 (down from 3.1), serum bicarbonate at 38. Troponins on admission were unremarkable. Albumin was 3.0. White blood cell count 13,200, hemoglobin 10.7, hematocrit 34.2, platelets are normal. Her last echocardiogram in June of this year with atrial fibrillation. Had a restrictive physiology noted. Systolic function normal with the EF of 65-70%. She had mild to moderate concentric LVH. RV was normal. IMPRESSION: 1. Acute respiratory failure superimposed on [place] [address] CONSULTATION Name: FRANCISCA WYMAN Estefani Room: [address] IN [facility].#: [id number] Admission: 08/26/17 Attend Phys: Marquita Mccoy MD Discharge: Date of : 56 Report #: [id number] does carry diagnosis of obstructive sleep apnea. Given her morbid obesity, she probably also has component of obesity hypoventilation syndrome. It is not clear how compliant she has been with her CPAP at home. Diuretic usage could contribute to a contraction alkalosis and consequently contribute to increasing her pCO2, but it does not appear that she has been on diuretics at home. She has unknown severity of her chronic obstructive pulmonary disease. Not overly bronchospastic at this time. Inadequately treated hypothyroidism could also contribute to marked hypercapnia. 2. Obstructive sleep apnea. 3. Morbid obesity. 4. Coronary artery disease status post stenting in 2013. 5. Diabetes mellitus. 6. Acute kidney injury superimposed on chronic kidney disease. RECOMMENDATIONS: 1. Follow up blood gas today. 2. Continue to sleep with CPAP. 3. May need to consider use of BiPAP or noninvasive ventilation while sleeping, if she will be compliant. 4. History of frequent falls and frequent Emergency Department visits and more recent hospital stays, it is apparent she is not adequately able to care for herself at home. Does appear she would be a candidate for long-term care. 5. Long-term certainly achieving and maintaining more ideal body weight would be beneficial as well. 6. Long-term prognosis is certainly guarded. <ELECTRONICALLY SIGNED> By: Cesar Ortiz MD 08/29/17 0939 1306 1944Sweetie Mcgee MD /nt
--- NOTE | 2017-08-29 10:54 | NUR ---
ORDERS NOTED FOR DC TO SNF. CALLED AND FAXED TO [facility]. AWAIT CALL BACK RE: INS AUTH AND ACCEPTANCE
--- NOTE | 2017-08-29 18:09 | NUR ---
RECEIVED ORDERS TO DISCHARGE PATIENT TO [facility]. CALLED REPORT TO ROBBIN AT FACILITY. IV DISCONTINUED AND PLASENCIA CATHETER DISCONTINUED. HEART MONITOR RETURNED TO NURSE'S STATION. JOSHUA MONTILLA HELPING PATIENT GET DRESSED AND PACKED FOR TRANSPORT. WAITING FOR PATIENT'S RIDE AT THIS TIME. SCHEDULED TO ARRIVE AT 1900. MOTHER IN ROOM AND AWARE OF DISCHARGE. NURSING WILL CONTINUE TO MONITOR UNTIL DISCHARGE.
--- NOTE | 2017-09-15 09:34 | EEG ---
[address] [address] EEG STUDY REPORT Name: FRANCISCA WYMAN Room: [address] IN .R.#: [id number] Admission: 08/26/17 Attend Phys: Marquita Mccoy MD Discharge: 08/29/17 Date of : 56 Report #: [id number] THIS REPORT FOR: //name// CC: Juan Mccoy DATE OF SERVICE: 08/29/2017 This patient is being evaluated for altered mental status. EEG was done by placing the electrodes by standard 10-20 system of electrode placement. Both referential and sequential montages were used for recording. Background activity in this patient's EEG is up to 8 Hz and 30 microvolt. The patient went to sleep that is associated with bilaterally symmetrical sleep spindle and vertex sharp waves. Photic stimulation is unremarkable. Throughout the record, no active epileptiform activity was noticed during this record. IMPRESSION: This is an abnormal EEG because it is intermixed with theta range slowing on both sides. That is a nonspecific abnormality, which can occur with encephalopathy, effect of psychotropic medication, dementia, etc. Clinical correlation is recommended. <ELECTRONICALLY SIGNED> By: Elvis Canas MD 09/15/17 0934 0830 [id number] Canas MD /nt
== END 2017-08-29 19:40 | DRG 562 ==
LOC: M.ERS 22:53 → M.TBA-ER 08-26 00:19 → M.2W 08-26 00:19
PROVIDERS: Emergency Medicine; Internal Medicine; Internal Medicine Nephrology; Internal Medicine Pulmonary Disease; ADMIT Internal Medicine
DX: S92.332A Displaced fracture of third metatarsal bone, left foot, initial encounter for closed fracture (principal); J96.21 Acute and chronic respiratory failure with hypoxia; G93.40 Encephalopathy, unspecified; N17.9 Acute kidney failure, unspecified; I13.0 Hypertensive heart and chronic kidney disease with heart failure and stage 1 through stage 4 chronic kidney disease, or unspecified chronic kidney disease; N18.4 Chronic kidney disease, stage 4 (severe); I50.30 Unspecified diastolic (congestive) heart failure; Z68.42 Body mass index [BMI] 45.0-49.9, adult; E83.52 Hypercalcemia; S93.402A Sprain of unspecified ligament of left ankle, initial encounter; E11.22 Type 2 diabetes mellitus with diabetic chronic kidney disease; E66.01 Morbid (severe) obesity due to excess calories; I25.10 Atherosclerotic heart disease of native coronary artery without angina pectoris; I48.91 Unspecified atrial fibrillation; E03.9 Hypothyroidism, unspecified; J44.9 Chronic obstructive pulmonary disease, unspecified; G47.33 Obstructive sleep apnea (adult) (pediatric); E11.65 Type 2 diabetes mellitus with hyperglycemia; E86.0 Dehydration; W18.39XA Other fall on same level, initial encounter; Y93.89 Activity, other specified; Y92.002 Bathroom of unspecified non-institutional (private) residence as the place of occurrence of the external cause; Y99.8 Other external cause status; Z99.81 Dependence on supplemental oxygen; Z95.5 Presence of coronary angioplasty implant and graft; Z87.891 Personal history of nicotine dependence; I25.2 Old myocardial infarction; Z79.4 Long term (current) use of insulin; Z79.02 Long term (current) use of antithrombotics/antiplatelets; Z79.82 Long term (current) use of aspirin; Z79.899 Other long term (current) drug therapy; Z91.040 Latex allergy status; Z82.49 Family history of ischemic heart disease and other diseases of the circulatory system

== ENCOUNTER 2017-10-17 11:15 | Inpatient (IN) | payer OTHER ==
[~2017-10-17] VITALS: Ht 170.2 cm; Wt 137.9 kg
[2017-10-17 11:18] VITALS: BP 152/49
[2017-10-17 12:01] LABS: URINE BILIRUBIN NEGATIVE (Negative); URINE BLOOD NEGATIVE (Negative); URINE CLARITY CLEAR; URINE COLOR YELLOW; URINE GLUCOSE-RANDOM NEGATIVE (Negative); URINE KETONES NEGATIVE (Negative); URINE LEUKOCYTES-REFLEX NEGATIVE (Negative); URINE NITRITE-REFLEX NEGATIVE (Negative); URINE PROTEIN TRACE (Negative); URINE SPECIFIC GRAVITY 1.015 (1.005-1.030); URINE UROBILINOGEN 0.2 E.U./dl (0.2-1.0)
[2017-10-17 12:06] LABS: HEMATOCRIT 33.3 % (37.0-47.0); HEMOGLOBIN 10.7 gm/dL (12.0-15.0); MCH 27.7 pg (26.0-34.0); MCV 86.3 fL (80.0-100.0); MPV 9.1 fl. (7.2-11.1); NUCLEATED RBCS 0 /100WBC; PLATELET COUNT* 240 thou/uL (150-400); RBC 3.85 mil/uL (4.20-5.00); RDW-CV 16.7 % (10.5-14.5); WBC 12.1 thou/uL (4.0-11.0)
[2017-10-17 12:26] LABS: ANION GAP 7 mmol/L (7-16); BUN 192 mg/dL (7-18); CALCIUM 9.5 mg/dL (8.5-10.1); CHLORIDE 90 mmol/L (98-107); CO2 37 mmol/L (21-32); CREATININE 4.3 mg/dL (0.6-1.3); GLUCOSE 276 mg/dL (70-99); POTASSIUM 3.7 mmol/L (3.5-5.1); SODIUM 134 mmol/L (136-145)
[2017-10-17 12:30] LABS: ALBUMIN 3.6 g/dL (3.4-5.0); ALKALINE PHOSPHATASE 92 U/L (46-116); LIPASE 137 U/L (73-393); SGOT 19 U/L (15-37); SGPT 16 U/L (30-65); TOTAL BILIRUBIN 0.3 mg/dL (<0.1-1.0); TOTAL PROTEIN 8.9 g/dL (6.4-8.2); TROPONIN-I LEVEL <0.06 ng/mL (<0.06)
[2017-10-17 12:40] LABS: ABSOLUTE NEUTROPHILS 11.1 thou/uL (1.6-8.1)
[2017-10-17 12:41] LABS: PLATELET ESTIMATE ADEQUATE
--- NOTE | 2017-10-17 15:23 | EKG ---
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: : 1960 Requested By: Liz Guerrero Order Number: [id number] MD: Brent Pineda Measurements Intervals [place] Rate: 42 P: 0 ME: 75 QRS: -85 QRSD: 171 T: 108 QT: 589 QTc: 493 Interpretive Statements Sinus bradycardia long ME interval Right bundle branch block left anterior fasicular block Compared to ECG 08/25/2017 23:58:31 rate slowed Electronically Signed On 10-17-2017 15:22:48 CDT by Brent Pineda [email or web address] <ELECTRONICALLY SIGNED> By: Brent Pineda MD, FAC 10/17/17 1522 1210 1210 Brent Pineda MD, [facility] /EPI
[2017-10-17 16:25] LABS: BE 10.5 mmol/L (-2 to +3); HCO3 36.6 mmol/L (22.0-26.0); PO2 81.7 mmHg (75.0-100.0); pH 7.402 (7.340-7.450)
[2017-10-17 16:30] LABS: PCO2 60.1 mmHg (35.0-45.0)
[2017-10-17 17:00] VITALS: BP 106/31
[2017-10-17 17:01] VITALS: BP 161/65
[2017-10-17 20:00] VITALS: BP 117/60
[2017-10-17 22:00] VITALS: BP 133/62
[2017-10-18] VITALS (7 sets, daily range): BP systolic 129–180; BP diastolic 39–63
[2017-10-18 04:42] LABS: ABSOLUTE BASOPHILS 0.1 thou/uL (0.0-0.2); ABSOLUTE EOSINOPHILS 0.3 thou/uL (0.0-0.7); ABSOLUTE LYMPHOCYTES 1.3 thou/uL (0.8-5.3); ABSOLUTE MONOCYTES 0.8 thou/uL (0.0-1.2); BASOPHILS 0.5 %; EOSINOPHILS 3.2 %; HEMATOCRIT 31.3 % (37.0-47.0); HEMOGLOBIN 10.2 gm/dL (12.0-15.0); LYMPHOCYTES 13.9 %; MCH 28.4 pg (26.0-34.0); MCHC 32.5 g/dL (28.0-37.0); MCV 87.4 fL (80.0-100.0); MONOCYTES 8.1 %; MPV 9.5 fl. (7.2-11.1); NUCLEATED RBCS 0 /100WBC; PLATELET COUNT* 210 thou/uL (150-400); POLYS 74.3 %; RBC 3.58 mil/uL (4.20-5.00); RDW-CV 17.1 % (10.5-14.5); WBC 9.4 thou/uL (4.0-11.0)
[2017-10-18 05:00] LABS: CALCIUM 8.8 mg/dL (8.5-10.1); POTASSIUM 3.5 mmol/L (3.5-5.1)
--- NOTE | 2017-10-18 13:27 | EKG ---
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: : 1960 Requested By: Sloane Frausto Order Number: [id number] MD: Brent Pineda Measurements Intervals [place] Rate: 65 P: -65 SD: 251 QRS: -72 QRSD: 166 T: 75 QT: 591 QTc: 615 Interpretive Statements Sinus bradycardia Prolonged SD interval RBBB and LAFB Compared to ECG 10/17/2017 12:10:16 no change Electronically Signed On 10-18-2017 13:26:53 CDT by Brent Pineda [email or web address] <ELECTRONICALLY SIGNED> By: Brent Pineda MD, [facility] 10/18/17 1326 1347 1347 Brent Pineda MD, [facility] /EPI
[2017-10-19] VITALS: BP 127/42
[2017-10-19 04:00] VITALS: BP 185/71
[2017-10-19 04:52] LABS: ABSOLUTE EOSINOPHILS 0.3 thou/uL (0.0-0.7); ABSOLUTE LYMPHOCYTES 1.1 thou/uL (0.8-5.3); ABSOLUTE MONOCYTES 0.9 thou/uL (0.0-1.2); ABSOLUTE NEUTROPHILS 8.6 thou/uL (1.6-8.1); BASOPHILS 0.4 %; EOSINOPHILS 2.7 %; HEMATOCRIT 32.4 % (37.0-47.0); HEMOGLOBIN 10.3 gm/dL (12.0-15.0); LYMPHOCYTES 10.4 %; MCH 27.7 pg (26.0-34.0); MCHC 31.9 g/dL (28.0-37.0); MONOCYTES 8.4 %; MPV 10.1 fl. (7.2-11.1); NUCLEATED RBCS 0 /100WBC; PLATELET COUNT* 228 thou/uL (150-400); POLYS 78.1 %; RBC 3.72 mil/uL (4.20-5.00); WBC 11.1 thou/uL (4.0-11.0)
[2017-10-19 04:58] LABS: ALBUMIN 3.3 g/dL (3.4-5.0); CALCIUM 9.5 mg/dL (8.5-10.1); POTASSIUM 3.4 mmol/L (3.5-5.1); TOTAL BILIRUBIN 0.2 mg/dL (<0.1-1.0); TOTAL PROTEIN 8.6 g/dL (6.4-8.2)
[2017-10-19 08:00] VITALS: BP 142/44
--- NOTE | 2017-10-19 11:11 | CON ---
[address] [address] CONSULTATION Name: FRANCISCA WYMAN Room: [address] IN .R.#: [id number] Admission: 10/17/17 Attend Phys: Manny Ortez MD Discharge: Date of : 56 Report #: [id number] THIS REPORT FOR: //name// CC: Manny Interiano DATE OF SERVICE: 10/17/2017 Nephrology Consultation CONSULTING PHYSICIAN: Manny Ortez MD REASON FOR CONSULTATION: Acute kidney injury. HISTORY OF PRESENT ILLNESS: A 57-year-old female admitted from nursing facility with confusion and severe bradycardia. No nausea, vomiting or diarrhea. No NSAIDs, but she recently was on IV Lasix because of edema. She had received intravenous Lasix at the nursing facility and last received at about 10 days ago. She has also had significantly decreased oral intake for the past few days. She has received some IV fluids. Her beta slime has been put on hold because of the severe bradycardia. She presently does not have any complaints. REVIEW OF SYSTEMS: Constitutional, psych, heme, eyes, ENT, respiratory, cardiac, GI, , and endocrine, all negative except as documented above. PAST MEDICAL HISTORY: Chronic kidney disease stage 4, history of acute kidney injury in the past with creatinine up to 5.2 in 07/2017 in the setting of diuretics, obstructive sleep apnea, history of Crohn's disease, diastolic heart failure, history of diabetes, hypertension, coronary artery disease with history of multiple stents, history of a-fib, hypothyroidism, pulmonary granuloma. SOCIAL HISTORY: Former smoker. FAMILY HISTORY: Not pertinent in this 57-year-old female. CURRENT MEDICATIONS: Reviewed. PHYSICAL EXAMINATION: VITAL SIGNS: Blood pressure is 161/65, pulse 53, respirations 14, temperature 37.1. GENERAL: No acute distress. EYES: Extraocular movements intact. EARS: Externally normal. CARDIOVASCULAR: Bradycardic. No pericardial friction rub. LUNGS: Diminished breath sounds. ABDOMEN: [place] [address] CONSULTATION Name: ZAMZAMFRANCISCA L Room: [address] IN [facility]#: [id number] Admission: 10/17/17 Attend Phys: Manny Ortez MD Discharge: Date of : 56 Report #: [id number] MUSCULOSKELETAL: Nontender. PSYCHIATRY: Awake, alert. NEUROLOGY: No asterixis, alert and oriented times 4. LABORATORY DATA: White cell count 12.1, hemoglobin 10.7, platelets 240. Sodium 134, potassium 3.7, chloride 90, bicarbonate 37, BUN 192, creatinine 4.3, glucose 376, calcium 9.5. CK was 41. Albumin 3.6. ASSESSMENT: 1. Acute kidney injury in the setting of severe bradycardia while on a beta slime, as well as significant volume depletion with decreased oral intake, as well as recent administration of IV Lasix with a history of acute kidney injury back in July with a creatinine of 5.2 in the setting of diuretics. Her admission BUN is 192. Her admission creatinine is 4.3. UA is noted. Previous kidney ultrasound did not reveal any acute findings. Previously, she had an ejection fraction of 65% to 70% with a pulmonary artery pressure of 55 to 60. 2. Chronic kidney disease stage 4. Baseline creatinine runs around 2 and on 08/29, it was 1.9. She follows with Dr. Cedeno as an outpatient. 3. Hypertension. 4. Chronic obstructive pulmonary disease. 5. Diabetes. 6. Obstructive sleep apnea. PLAN: 1. Avoid any diuretics. 2. Continue IV fluids. 3. Beta-slime has been put on hold. 4. No uremic signs or symptoms at present. No acute indications for dialysis. We will follow closely. Expect renal function to improve with above measures. No indication for renal ultrasound at this time. If creatinine is not improving or she is not making any urine, we will then order a renal ultrasound. Thank you for requesting my opinion in the care and management of this patient. <ELECTRONICALLY SIGNED> By: Trista Hubbard MD 10/19/17 1111 1708 0357Akatrin Hubbard MD /nt
--- NOTE | 2017-10-19 13:30 | CON ---
[address] [address] CONSULTATION Name: ZAMZAMFRANCISCA L Room: [address] IN M.R.#: [id number] Admission: 10/17/17 Attend Phys: Manny Ortez MD Discharge: Date of : 56 Report #: [id number] THIS REPORT FOR: //name// CC: Manny Ortez Patient's Chart Dagoberto Interiano DO DATE OF SERVICE: 10/17/2017 HISTORY OF PRESENT ILLNESS: The patient is a 57-year-old morbidly obese white female who I was asked to see in the hospital today because of bradycardia. The patient has an extensive past medical history. She has had multiple coronary stents in the past, both here at [place] and [place], [place]. She has been followed by my partner, Dr. Elizondo. Recently she had an ankle fracture. She is admitted here to [facility]. She was discharged to assisted. She was brought from the assisted today complaining of pain when she swallows. She has also had back pain. She is noted to be bradycardic and cardiology consultation is requested. She has occasional chest burning but denies any significant chest tightness. She is not very active and is mainly in a wheelchair at the assisted. She does get short of breath on exertion. She notes occasional flutter in chest. She has occasional lightheadedness. PAST MEDICAL HISTORY: Significant for no major surgical procedures. She has a history of hypertension, diabetes, sleep apnea. MEDICATIONS: Consist of aspirin, Lipitor, Neurontin, insulin, DuoNeb, Synthroid, metoprolol, oxycodone, Protonix, Paxil, demedex, potassium. ALLERGIES: She has an intolerance to VICODIN. FAMILY HISTORY: Positive for heart disease. SOCIAL HISTORY: Single, never , has no children. 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 She is accompanied to the Emergency Room by her mother. Quit smoking in the past. She no longer drinks alcohol. REVIEW OF SYSTEMS: She had no history of stroke. She does have sleep apnea. No history of peptic ulcer disease. No history of liver disease. She has chronic kidney disease. No cancer. No psychiatric illness. PHYSICAL EXAMINATION: GENERAL: Revealed a large middle-aged female, lying in bed. She appeared in no acute distress. VITAL SIGNS: Blood pressure 150/70, pulse 40. HEENT: She was anicteric. Conjunctivae pink[place] [address] CONSULTATION Name: FRANCISCA WYMAN Room: [address]#: [id number] Admission: 10/17/17 Attend Phys: Manny Ortez MD Discharge: Date of : 56 Report #: [id number] NECK: Veins difficult to assess due to obesity. CHEST: Clear to auscultation. CARDIAC: Regular, bradycardia. ABDOMEN: Obese. EXTREMITIES: Had no pitting edema. SKIN: Cool and dry. ECG shows what appears to be sinus bradycardia, left axis and a right bundle branch block. IMPRESSION AND RECOMMENDATION: 1. Coronary artery disease. No recent angina. I would continue aspirin a day. 2. Sinus bradycardia. Recommend discontinue beta slime. 3. Hypertension. The patient is on the beta slime, hydralazine. 4. Edema. Suspect venous insufficiency. The patient on diuretics. 5. Asthma. 6. Hyperlipidemia. The patient is on the statin drug. 7. Chronic back pain. 8. Previous tobacco abuse. 9. Morbid obesity. 10. Recent ankle fracture. 11. Pain when swallowing. Consider GI workup. <ELECTRONICALLY SIGNED> By: Brent Pineda MD, [facility] 10/19/17 1330 1409 2239Brent Pineda MD, FACC /nt
[2017-10-19 14:15] VITALS: BP 138/30
[2017-10-19 15:45] VITALS: BP 117/34
[2017-10-19 20:00] VITALS: BP 158/58
[2017-10-20] VITALS: BP 128/40
[2017-10-20 04:00] VITALS: BP 150/59
[2017-10-20 04:28] LABS: ABSOLUTE EOSINOPHILS 0.3 thou/uL (0.0-0.7); ABSOLUTE LYMPHOCYTES 1.3 thou/uL (0.8-5.3); ABSOLUTE MONOCYTES 0.8 thou/uL (0.0-1.2); ABSOLUTE NEUTROPHILS 6.5 thou/uL (1.6-8.1); BASOPHILS 0.5 %; EOSINOPHILS 3.1 %; HEMATOCRIT 28.5 % (37.0-47.0); HEMOGLOBIN 9.2 gm/dL (12.0-15.0); LYMPHOCYTES 14.9 %; MCHC 32.2 g/dL (28.0-37.0); MCV 87.1 fL (80.0-100.0); MONOCYTES 9.2 %; MPV 9.9 fl. (7.2-11.1); NUCLEATED RBCS 0 /100WBC; PLATELET COUNT* 198 thou/uL (150-400); POLYS 72.3 %; RBC 3.27 mil/uL (4.20-5.00); RDW-CV 16.7 % (10.5-14.5); WBC 8.9 thou/uL (4.0-11.0)
[2017-10-20 05:03] LABS: ALBUMIN 2.8 g/dL (3.4-5.0); CALCIUM 9.1 mg/dL (8.5-10.1); CREATININE 2.3 mg/dL (0.6-1.3); MAGNESIUM 2.5 mg/dL (1.8-2.4); PHOSPHORUS* 4.2 mg/dL (2.5-4.9); POTASSIUM 3.8 mmol/L (3.5-5.1)
[2017-10-20 05:06] LABS: ALBUMIN 2.7 g/dL (3.4-5.0); CALCIUM 9.2 mg/dL (8.5-10.1); CREATININE 2.4 mg/dL (0.6-1.3); POTASSIUM 3.5 mmol/L (3.5-5.1); TOTAL BILIRUBIN 0.2 mg/dL (<0.1-1.0); TOTAL PROTEIN 7.3 g/dL (6.4-8.2)
[2017-10-20 08:00] VITALS: BP 183/60
--- NOTE | 2017-10-20 10:47 | EKG ---
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 : 1960 Requested By: Manny Ortez Order Number: [id number] Reading MD: Brent Pineda Measurements Intervals [place] Rate: 62 P: -36 ND: 365 QRS: -71 QRSD: 153 T: 65 QT: 502 QTc: 510 Interpretive Statements Sinus rhythm Supraventricular beats Prolonged ND interval Right bundle branch block left anterior fasicular block Compared to ECG 10/17/2017 13:47:25 Atrial premature complex(es) now present Sinus bradycardia no longer present Electronically Signed On 10-20-2017 10:47:09 CDT by Brent Pineda [email or web address] <ELECTRONICALLY SIGNED> By: Brent Pineda MD, [facility] 10/20/17 1047 0510 0510 Brent Pineda MD, [facility] /EPI
[2017-10-20 12:02] VITALS: BP 174/65
--- NOTE | 2017-10-20 15:26 | EKG ---
[place] [address] ELECTROCARDIOGRAM REPORT Name: FRANCISCA WYMAN Room: [address] ADM IN M.R.#: [id number] Admission: 10/17/17 Attend Phys: Manny Ortez MD Discharge: Date of : 56 Report #: [id number] THIS REPORT FOR: //name// [facility] Test Date: 2017-10-19 Test Time: 18:55:28 Pat Name: FRANCISCA WYMAN Department: Room: [address] Gender: F Assistant To The Director: 1887 : 1960 Requested By: Manny Ortez Order Number: [id number] Reading MD: Brent Pineda Measurements Intervals [place] Rate: 57 P: 265 ID: 289 QRS: 263 QRSD: 150 T: 84 QT: 470 QTc: 458 Interpretive Statements Sinus or ectopic atrial rhythm Atrial premature complexes in couplets Prolonged ID interval left anterior fasicular block RBBB Compared to ECG 10/17/2017 13:47:25 rate increased Electronically Signed On 10-20-2017 15:26:38 CDT by Brent Pineda [email or web address] <ELECTRONICALLY SIGNED> By: Brent Pineda MD, FAC 10/20/17 1526 1855 1855 Brent Pineda MD, [facility] /EPI
[2017-10-20 15:47] VITALS: BP 171/60
[2017-10-20 20:04] VITALS: BP 169/40
[2017-10-21] VITALS: BP 137/44
[2017-10-21 04:00] VITALS: BP 152/54
[2017-10-21 04:13] LABS: ABSOLUTE BASOPHILS 0.1 thou/uL (0.0-0.2); ABSOLUTE EOSINOPHILS 0.4 thou/uL (0.0-0.7); ABSOLUTE LYMPHOCYTES 1.4 thou/uL (0.8-5.3); ABSOLUTE NEUTROPHILS 6.5 thou/uL (1.6-8.1); BASOPHILS 0.7 %; EOSINOPHILS 3.8 %; HEMOGLOBIN 10.1 gm/dL (12.0-15.0); LYMPHOCYTES 14.8 %; MCH 27.9 pg (26.0-34.0); MCHC 31.7 g/dL (28.0-37.0); MPV 10.1 fl. (7.2-11.1); NUCLEATED RBCS 0 /100WBC; PLATELET COUNT* 223 thou/uL (150-400); POLYS 69.7 %; RBC 3.63 mil/uL (4.20-5.00); RDW-CV 16.9 % (10.5-14.5); WBC 9.3 thou/uL (4.0-11.0)
[2017-10-21 04:27] LABS: ALBUMIN 2.8 g/dL (3.4-5.0); CALCIUM 9.3 mg/dL (8.5-10.1); CREATININE 1.9 mg/dL (0.6-1.3); POTASSIUM 3.7 mmol/L (3.5-5.1); TOTAL BILIRUBIN 0.2 mg/dL (<0.1-1.0); TOTAL PROTEIN 7.7 g/dL (6.4-8.2)
[2017-10-21 08:00] VITALS: BP 182/60
[2017-10-21 12:00] VITALS: BP 161/61
[2017-10-21 15:26] VITALS: BP 181/44
[2017-10-21 20:00] VITALS: BP 170/53
[2017-10-22] VITALS: BP 167/52
[2017-10-22 04:00] VITALS: BP 150/47
[2017-10-22 08:00] VITALS: BP 172/59
[2017-10-22 09:22] LABS: CALCIUM 9.1 mg/dL (8.5-10.1); CREATININE 1.6 mg/dL (0.6-1.3); POTASSIUM 3.2 mmol/L (3.5-5.1)
[2017-10-22 11:35] VITALS: BP 172/59
[2017-10-22] MEDS ORDERED: TOPROL XL25 MG PO (12:31)
[2017-10-22] MEDS ORDERED: HYDRALAZINE 2525 MG PO (12:37)
== END 2017-10-22 14:00 | DRG 682 ==
LOC: M.ERS 11:15 → M.TBA-ER 14:30 → M.2W 14:30 → M.ICU 16:56 → M.2W 10-18 09:02
PROVIDERS: Internal Medicine Nephrology; Nurse Practitioner Family; ADMIT Internal Medicine
DX: N17.9 Acute kidney failure, unspecified (principal); G93.40 Encephalopathy, unspecified; J96.20 Acute and chronic respiratory failure, unspecified whether with hypoxia or hypercapnia; R65.11 Systemic inflammatory response syndrome (SIRS) of non-infectious origin with acute organ dysfunction; I50.30 Unspecified diastolic (congestive) heart failure; I13.2 Hypertensive heart and chronic kidney disease with heart failure and with stage 5 chronic kidney disease, or end stage renal disease; Z68.42 Body mass index [BMI] 45.0-49.9, adult; L03.314 Cellulitis of groin; R00.1 Bradycardia, unspecified; E66.01 Morbid (severe) obesity due to excess calories; I25.10 Atherosclerotic heart disease of native coronary artery without angina pectoris; I48.91 Unspecified atrial fibrillation; E03.9 Hypothyroidism, unspecified; E87.6 Hypokalemia; J44.9 Chronic obstructive pulmonary disease, unspecified; G47.33 Obstructive sleep apnea (adult) (pediatric); N18.5 Chronic kidney disease, stage 5; E86.0 Dehydration; E11.22 Type 2 diabetes mellitus with diabetic chronic kidney disease; E78.5 Hyperlipidemia, unspecified; G89.29 Other chronic pain; M54.9 Dorsalgia, unspecified; Z87.81 Personal history of (healed) traumatic fracture; Z87.891 Personal history of nicotine dependence; Z86.14 Personal history of Methicillin resistant Staphylococcus aureus infection; Z99.81 Dependence on supplemental oxygen; I25.2 Old myocardial infarction; Z95.5 Presence of coronary angioplasty implant and graft; Z79.02 Long term (current) use of antithrombotics/antiplatelets; Z79.4 Long term (current) use of insulin; Z79.82 Long term (current) use of aspirin; Z79.899 Other long term (current) drug therapy; Z91.040 Latex allergy status; Z88.8 Allergy status to other drugs, medicaments and biological substances; Z82.49 Family history of ischemic heart disease and other diseases of the circulatory system

== ENCOUNTER 2018-03-09 17:45 | Inpatient (IN) | payer OTHER, MEDICAID ==
[~2018-03-09] VITALS: Ht 165.1 cm; Wt 150.7 kg
[2018-03-09 17:46] VITALS: BP 165/59
[2018-03-09] MEDS ORDERED: ZAROXOLYN 5MG TA5 MG PO (18:01)
[2018-03-09] MEDS ORDERED: AMITRIPTYLINE H25 M2 PO (18:01)
[2018-03-09] MEDS ORDERED: SINGULAIR 10 MG10 M1 PO (18:01)
[2018-03-09] MEDS ORDERED: PROPRANOLOL 1010 MG PO (18:02)
[2018-03-09 18:17] LABS: HEMATOCRIT 33.6 % (37.0-47.0); HEMOGLOBIN 10.7 gm/dL (12.0-15.0); MCH 27.9 pg (26.0-34.0); MCHC 31.7 g/dL (28.0-37.0); MCV 87.9 fL (80.0-100.0); NUCLEATED RBCS 0 /100WBC; PLATELET COUNT* 184 thou/uL (150-400); RBC 3.83 mil/uL (4.20-5.00); RDW-CV 17.8 % (10.5-14.5); WBC 11.4 thou/uL (4.0-11.0)
[2018-03-09 18:29] LABS: APTT 25.9 Seconds (25.0-31.3); PROTIME 10.4 Seconds (9.20-11.50)
[2018-03-09 18:30] LABS: ANION GAP 5 mmol/L (7-16); BUN 51 mg/dL (7-18); CALCIUM 8.9 mg/dL (8.5-10.1); CHLORIDE 104 mmol/L (98-107); CO2 31 mmol/L (21-32); CREATININE 2.1 mg/dL (0.6-1.3); GLUCOSE 212 mg/dL (70-99); POTASSIUM 4.4 mmol/L (3.5-5.1); SODIUM 140 mmol/L (136-145)
[2018-03-09 18:34] LABS: ALBUMIN 2.9 g/dL (3.4-5.0); ALKALINE PHOSPHATASE 94 U/L (46-116); LIPASE 77 U/L (73-393); SGOT 28 U/L (15-37); SGPT 24 U/L (30-65); TOTAL BILIRUBIN 0.2 mg/dL (<0.1-1.0); TOTAL PROTEIN 7.5 g/dL (6.4-8.2); TROPONIN-I LEVEL <0.06 ng/mL (<0.06)
[2018-03-09 18:47] LABS: ABSOLUTE EOSINOPHILS 0.1 thou/uL (0.0-0.7); ABSOLUTE LYMPHOCYTES 1.4 thou/uL (0.8-5.3); ABSOLUTE MONOCYTES 0.8 thou/uL (0.0-1.2); ABSOLUTE NEUTROPHILS 9.1 thou/uL (1.6-8.1)
[2018-03-09 18:48] LABS: ANISOCYTOSIS 1+; PLATELET ESTIMATE ADEQUATE
[2018-03-09 18:49] LABS: CLUMPED PLTS RARE
[2018-03-09 19:54] VITALS: BP 171/50
[2018-03-10] VITALS: BP 161/65
[2018-03-10 04:00] VITALS: BP 149/60
--- NOTE | 2018-03-10 06:55 | NUR ---
VITALS WNL. SEE MAR. SEE CHARTING. FALL PRECAUTIONS IN PLACE. HOURLY ROUNDING FOR SAFETY.
[2018-03-10 08:00] VITALS: BP 164/74
--- NOTE | 2018-03-10 11:13 | NUR ---
ASSUMED CARE OF PATIENT THIS AM AT 0730. PATIENT IS ALERT AND ORIENTED X 4. SHE DENIES PAIN OF ANY KIND THIS AM. PATIENT HAS BEEN RESTING WELL TODAY. SHE CONTINUES ON O2 AT 3 LITERS. TELE SHOWS SR WITH 1DAVB AND BBB. PATIENT'S MA INTERVAL IS MUCH LONGER TODAY. DR NOTIFIED. PATIENT KEPT NPO THIS AM THEN MEDICATIONS RESUMED. WILL CONTINUE TO MONITOR.
[2018-03-10 12:00] VITALS: BP 145/70
[2018-03-10 16:00] VITALS: BP 171/60
[2018-03-10 19:50] VITALS: BP 176/51
[2018-03-11] VITALS (7 sets, daily range): BP systolic 131–181; BP diastolic 46–66
[2018-03-11 03:05] LABS: GLYCOHEMOGLOBIN (HGB A1C) 7.7 % (4.8-5.6)
[2018-03-11 05:28] LABS: HEMATOCRIT 29.7 % (37.0-47.0); HEMOGLOBIN 9.4 gm/dL (12.0-15.0); MCH 28.1 pg (26.0-34.0); MCHC 31.7 g/dL (28.0-37.0); MCV 88.6 fL (80.0-100.0); MPV 9.2 fl. (7.2-11.1); RBC 3.35 mil/uL (4.20-5.00); RDW-CV 17.5 % (10.5-14.5); WBC 9.1 thou/uL (4.0-11.0)
[2018-03-11 05:53] LABS: ANION GAP 5 mmol/L (7-16); BUN 54 mg/dL (7-18); CALCIUM 8.3 mg/dL (8.5-10.1); CHLORIDE 104 mmol/L (98-107); CHOLESTEROL 120 mg/dL (<200); CO2 30 mmol/L (21-32); CREATININE 2.1 mg/dL (0.6-1.3); GLUCOSE 257 mg/dL (70-99); HDL CHOLESTEROL 38 mg/dL (>40); LDL CHOLESTEROL 71 mg/dL (<100); MAGNESIUM 2.2 mg/dL (1.8-2.4); SODIUM 139 mmol/L (136-145); TC:HDL 3.2 Ratio (Not establshd); TRIGLYCERIDE 59 mg/dL (<150); VLDL 12 mg/dL (<40)
[2018-03-11 05:54] LABS: SERUM ASSESSMENT CLEAR
--- NOTE | 2018-03-11 06:11 | NUR ---
VITALS WNL. SEE MAR. SEE CHARTING. FALL PRECAUTIONS IN PLACE. HOURLY ROUNDING FOR SAFETY.
--- NOTE | 2018-03-11 12:12 | NUR ---
MET WITH PT TO DISCUSS HOME SITUATION/DC PLANNING. PT LIVES WITH HER MOTHER, WHO IS DPOA. PT USES [facility], BIPAP, O2 AT 3L AND NEBULIZER THRU [facility]. SHE HAS HAD HH WITH [facility] AND WOULD LIKE TO HAVE THEM AGAIN AT [place]. PT HAS BEEN TO [facility] IN THE PAST FOR SNF AND STAYED LTC FOR 2MONTHS. SHE PLANS TO RETURN HOME AT DC WITH HH. WILL FOLLOW
--- NOTE | 2018-03-11 13:42 | EKG ---
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 03/11/18 1341 1758 1758 Brent Pineda MD, [facility] /EPI
--- NOTE | 2018-03-11 16:18 | 2DMMODE ---
[place] [address] 2 D/M-MODE ECHOCARDIOGRAM Name: ZAMZAMFRANCISCA L Room: [address] IN [facility]#: [id number] Admission: 03/09/18 Attend Phys: Elgin Zuluaga Discharge: Date of : 56 Date of Service: 03/11/18 1618 Report #: [id number] THIS REPORT FOR: //name// APPROVED REPORT Study performed: 03/11/2018 14:13:53 EXAM: Comprehensive 2D, Doppler, and color-flow Echocardiogram Patient Location: In-Patient Room #: [facility] Status: routine BSA: 2.43 HR: 67 bpm BP: 181/66 mmHg Rhythm: NSR Other Information Study Quality: Technically Limited Indications Arrhythmia Syncope Chest Pain 2D Dimensions IVSd: 16.16 (7-11mm) LVOT Diam: 20.16 (18-24mm) LVDd: 40.36 mm PWd: 13.39 (7-11mm) Ascending Ao: 29.22 (22-36mm) LVDs: 25.73 (25-40mm) Aortic Root: 27.49 mm Volumes Left Atrial Volume (Systole) LA ESV Index: 36.10 mL/m2 Aortic Valve AoV Peak Tyrese.: 1.63 m/s AO Peak Gr.: 10.57 mmHg LVOT Max P.97 mmHg AO Mean Gr.: 6.28 mmHg LVOT Mean P.67 mmHg LVOT Max V: 1.32 m/s AO V2 VTI: 37.20 cm LVOT Mean V: 0.89 m/s SHLOMO (VTI): 2.60 cm2 LVOT V1 VTI: 30.36 cm Mitral Valve E/A Ratio: 1.50 [place] [address] 2 D/M-MODE ECHOCARDIOGRAM Name: ZAMZAMFRANCISCA L Room: [address] IN ..#: [id number] Admission: 03/09/18 Attend Phys: Elgin Zuluaga Discharge: Date of : 56 Date of Service: 03/11/18 1618 Report #: [id number] MV Decel. Time: 173.13 ms MV E Max Tyrese.: 1.50 m/s MV PHT: 50.21 ms MVA (PHT): 4.38 cm2 TDI E/Lateral E': 15.00 Lateral E' Tyrese.: 0.10 m/s Pulmonary Valve PV Peak Tyrese.: 1.31 m/s PV Peak Gr.: 6.87 mmHg Left Ventricle The left ventricle is normal size. There is normal LV segmental wall motion. Mild to moderate concentric left ventricular hypertrophy. Left ventricular systolic function is normal. The left ventricular ejection fraction is within the normal range. LVEF is 60-65%. The left ventricular diastolic function is normal. Right Ventricle The right ventricle is normal size. The right ventricular systolic function is normal. Atria Left atrium is mildly dilated. The right atrium size is normal. Aortic Valve The Aortic valve is sclerotic. No aortic regurgitation is present. There is no aortic valvular stenosis. Mitral Valve The mitral valve is normal in structure. There is no mitral valve regurgitation noted. No evidence of mitral valve stenosis. Tricuspid Valve The tricuspid valve is normal in structure. Trace tricuspid regurgitation. Unable to assess PA pressure. Pulmonic Valve The pulmonary valve is normal in structure. There is no pulmonic valvular regurgitation. Great Vessels The aortic root is normal in size. IVC is normal in size and collapses >50% [place] [address] 2 D/M-MODE ECHOCARDIOGRAM Name: ZAMZAMFRANCISCA L Room: [address]#: [id number] Admission: 03/09/18 Attend Phys: Elgin Zuluaga Discharge: Date of : 56 Date of Service: 03/11/18 1618 Report #: [id number] Pericardium There is no pericardial effusion. <Conclusion> Mild to moderate concentric left ventricular hypertrophy. LVEF is 60-65%. Left atrium is mildly dilated. The Aortic valve is sclerotic. <ELECTRONICALLY SIGNED> By: Brent Pineda MD, [facility] 03/11/18 1618 1618 1618 Brent Pineda MD, [facility] /INF
--- NOTE | 2018-03-11 18:08 | NUR ---
PATIENT RESTING IN BED. UP AD CARLOS IN ROOM. VASCULAR CONSULTATION COMPLETD AND DOCUMENTED. PATIENT ANTICIPATING DISCHARGE TO HOME TOMMORROW. VITAL SIGNS STABLE AND PATINET IN NOAPPARNET SIGNS OF DISTRESS AT THIS TIME.
[2018-03-12] VITALS: BP 141/57
[2018-03-12 04:00] VITALS: BP 122/83
--- NOTE | 2018-03-12 05:43 | NUR ---
ASSUMED CARE OF PT AFTER REPORT AT 1930. PT A&OX4. VSS. PHYSICAL ASSESSMENT COMPLETED AND CHARTED. PT ON O2 AT 3L NC/ CPAP WHEN SLEEPING WITH 98% O2 SAT. PT TRACING SR/1ST DEG/BBB ON TELE. PT UPADLIB TO RESTROOM. DENIES ANY PAIN OR SOA. PT RESTED WELL ON BED. CALL LIGHT WITHIN REACH. HS REST & SAFETY GOALS ACHIEVED. BED IN LOW POSITION.
[2018-03-12 08:00] VITALS: BP 173/58
--- NOTE | 2018-03-12 09:40 | CON ---
[address] [address] CONSULTATION Name: ZAMZAMFRANCISCA Estefani Room: [address] IN .R.#: [id number] Admission: 03/09/18 Attend Phys: Gabby Bean Discharge: Date of : 56 Report #: [id number] THIS REPORT FOR: //name// CC: ADRIANNA physician/PCP Elgin Zuluaga DATE OF SERVICE: 03/11/2018 HISTORY OF PRESENT ILLNESS: This is a 57-year-old female patient who was evaluated by me for any neurological etiology for the patient's syncope. The patient's history is not very clear. I do not have a firsthand witness to that. She indicates she was sitting in a sofa. Her mother was with her. She noticed that she is not responding. Apparently, she was still able to talk, but her speech was very slow. When this happened, she was trying to grab her oxygen. She is on supplemental oxygen 24 hours a day. She said she passed out at that time, there was no tonic-clonic activity. It lasted about 10 minutes. It came spontaneously, then resolved spontaneously. REVIEW OF SYSTEMS: Indicate she was bradycardic at one time. She has cardiac problem, she follows up with cardiac problem. When this episode occurred, she was without oxygen. She does have a history of COPD. She does have a history of hypertension. At one time, she had bradycardia. She does have a history of hyperglycemia. She had previously fallen. She had stents placed in the past. Records indicate that she has a history of renal insufficiency and her GFR is only 24. It has been like that are as low as 11 in October. A 14-point review of systems was carried out and was otherwise noncontributory. She is not complaining of any new eye, ENT, GI, , musculoskeletal, constitutional, dermatological, hematological, psychiatric, throat, allergic symptom associated with present symptomatology. PAST MEDICAL HISTORY: Negative for any stroke. FAMILY HISTORY: Negative for any early age stroke. SOCIAL HISTORY: She is not presently a smoker and that she does not drink alcohol on a regular basis. PHYSICAL EXAMINATION: Indicates she is alert. She is responsive. She is oriented. Her speech, concentration, fund of knowledge and memory is at her baseline. Cranial nerve examination 2-12 appear unremarkable. Strength, sensation, reflexes and tone is symmetrical. There is no meningeal or cerebellar sign. There is no papilledema. She is morbidly obese individual who does not have any dysmorphic features of eyes, ears and face. Her vision and hearing looks adequate. She has no thyroid mass. Blood pressure is 181/66, pulse is 77, temperature [place] 97.7[place] [address] CONSULTATION Name: FRANCISCA WYMAN Estefani Room: [address] IN [facility]#: [id number] Admission: 03/09/18 Attend Phys: Gabby Bean Discharge: Date of : 56 Report #: [id number] LABORATORY DATA: Indicates a white count of 9.1, GFR of 24. She did not have any imaging study of the brain. IMPRESSION: It is not clear what the etiology of the patient's episode is. Her carotid Doppler has showed possible disease. That needs to be confirmed. If that finding revealed, then hypoxia can make those carotids symptomatic. She needs further workup. Further workup is difficult. The ideal thing for her to have an MRI of the brain and MRA of the head and neck. That should be done without contrast because of her renal failure. However, she indicates that she will not do the MRI. I talked to her the reason we would like to do the MRI, but she still decided she does not want to do the MRI. I asked her to let me know if she changes her mind and if she does that will be the best test her to have. She did have an MRA of the carotid earlier this year showing a question of a right carotid stenosis. Because of renal failure, it is not desirable to do a CT angio in this patient. She needs the management of her systemic factors. We will talk to her again and if she is willing for that, I will suggest getting an MRI/MRA of the head and neck repeated. I discussed all of it with the patient in detail and more than 50 minutes of time was spent taking care of this patient today and majority of that time was spent counseling the patient on above matter and coordinating her care. <ELECTRONICALLY SIGNED> By: Elvis Canas MD 03/12/18 0940 [id number] Canas MD /nt
--- NOTE | 2018-03-12 10:46 | CON ---
[address] [address] CONSULTATION Name: ZAMZAMFRANCISCA Estefani Room: [address] IN .R.#: [id number] Admission: 03/09/18 Attend Phys: Gabby Bean Discharge: Date of : 56 Report #: [id number] THIS REPORT FOR: //name// CC: ADRIANNA physician/PCP Elgin Zuluaga DATE OF SERVICE: 03/10/2018 HISTORY OF PRESENT ILLNESS: The patient is a 57-year-old single white female who I was asked to see in the hospital today after she apparently had a syncopal spell. The patient has an extensive past medical history. She has been cared for by my partner, Dr. Elizondo. She receives her primary care at [facility]. The patient initially presented in 2009 with SVT and a non-STEMI. She was seen by Dr. Simons. She underwent a heart catheterization in 2009 and was found to have high-grade stenosis of the right coronary artery. She then had a coronary stent placed by Dr. Robbins using 4 stents. She had been followed by Dr. Elizondo since that time. She states she had additional stents placed a couple of years ago at [facility]. She is not very active because of her large size. She is 5 feet 7 inches and weighs 325 pounds. She ambulates very little. She was last admitted here to [place] in October with confusion. She is found to be bradycardiac and had acute renal insufficiency. She is felt to have encephalopathy. She had an episode of atrial fibrillation. She eventually was discharged. She states she has been doing well recently and went to the store. When she got back from the store, she went into her bedroom. She then apparently sat down on a chair and had a brief loss of consciousness. Paramedics were called. She apparently did not fall to the floor. She denied injuring herself. She denied any significant chest pain, increased shortness of breath. She does note occasional flutter in her heart, but has had no other syncope. PAST MEDICAL HISTORY: She has had a previous carpal tunnel surgery, tonsillectomy, hypertension, diabetes and chronic kidney disease. She has been diagnosed with Crohn's disease in the past. She has had an MRSA abscess in the past. MEDICATIONS: On admission included hydralazine, Singulair, Zaroxolyn, Elavil, propranolol, aspirin, Lipitor, insulin, Paxil, Neurontin and Synthroid. She is no longer on Plavix. ALLERGIES: She has no known drug allergies. FAMILY HISTORY: Positive for heart disease. SOCIAL HISTORY: She is single, never been and lives with her brother in [place], [place]. She used to smoke 2 packs of cigarettes a day, quit in 2009. No alcohol abuse. She used [place] [address] CONSULTATION Name: FRANCISCA WYMAN Estefani Room: [address]#: [id number] Admission: 03/09/18 Attend Phys: Gabby Bean Discharge: Date of : 56 Report #: [id number] REVIEW OF SYSTEMS: She has had no history of stroke. She has COPD. She is on chronic oxygen. No history of liver disease. She has chronic kidney disease, no cancer. No psychiatric illness. No chronic skin condition. PHYSICAL EXAMINATION: GENERAL: Revealed a middle-aged female lying in bed. She appeared in no acute distress. VITAL SIGNS: She had a blood pressure of 150/70 and pulse 60. She is afebrile. HEENT: She was anicteric, conjunctiva pink. Mucous membranes are moist. NECK: Veins are difficult to assess due to obesity. CHEST: Clear to auscultation. CARDIAC: Regular rate and rhythm. ABDOMEN: Obese. EXTREMITIES: Had no pitting edema. Dorsalis pedis pulse 1+ bilaterally. SKIN: Warm and dry. NEUROLOGIC: Nonfocal. LYMPH: No adenopathy. MUSCULOSKELETAL: No joint effusion. LABORATORY DATA: ECG on admission showed a sinus bradycardia with first-degree AV block, left anterior fascicular block and right bundle branch block. On the monitor, she remained in sinus rhythm. Her workup, she had an echocardiogram in June of this year that showed left ventricular hypertrophy, ejection fraction 65%, biatrial enlargement, moderately severe pulmonary hypertension. Her x-rays yesterday, she had a portable chest x-ray that showed decreased inspiration and atelectasis. She had a CT scan of the head in August of this year that showed no acute abnormality. Her lab work, sodium 140 and BUN 51 and in the past it has been as high as 192. Her creatinine is 2.1 in the past it has been as high as 4.3. Liver function studies were normal. Troponin 0.13. BNP 1231. TSH 4.1. White blood cell count 11.4 and hemoglobin 10.6 and it was 10.4 in July. IMPRESSION AND RECOMMENDATIONS: 1. Syncope. Reason unclear. Possible hypoxia. The patient was without her oxygen. I will continue to monitor at this time. 2. Bradycardia. I will consider discontinuing her beta slime. 3. Obesity. 4. Chronic obstructive pulmonary disease. 5. Hypertension. The patient has been on a beta slime. 6. Previous tobacco abuse. 7. Anemia. No history of bleeding. <ELECTRONICALLY SIGNED> By: Bernt Pineda MD, FACC 03/12/18 1046 [id number] Geraldo Pineda MD, FAC /nt
[2018-03-12] MEDS ORDERED: AMLODIPINE BESYL5 M1 PO (12:04)
--- NOTE | 2018-03-12 12:23 | NUR ---
ORDERS NOTED FOR DC HOME WITH HH. PT HAD [facility]OSEN [facility] SHE USED THEM PREVIOUSLY. CALLED AND FAXED ORDERS TO [facility]. ALSO CONTACTED PT'S PCP DR JUNIE BASSETT'S OFFICE RE: SETTING UP RECOMMENDED MRA OF HEAD/NECK PT NEEDS OPEN MRA. FAXED CLINICAL AND DC SUMMARY WITH REC. TO [phone] PT DENIES OTHER NEEDS
[2018-03-12 12:29] VITALS: BP 154/57
--- NOTE | 2018-03-12 14:13 | NUR ---
ORDER RECEIVED TO SUNDEEP PATIENT HOME TO SELF CARE WITH HOME HEALTH. MED REC, MEDICATION EDCATION, STROKE EDUCATION AND NEED FOR FOLLOW UP APPOINTMENT WITH NEUROLOGY AND VSCULAR SURGERY COVERED AND STATED UNDERSTOOD BY [facility]. TELEMETRY PACK REMOVED AND PATIENTS BELONGINGS GATHERED. HOURLY ROUNDING COMPLETED FOR PATIENT SAFETY AND PATIENT WAS IN NO APPARENT SIGNS OF DISTRESS AT TIME OF DISCHARE. DISCHARGE TOME OF 14:00.
== END 2018-03-12 14:12 | disposition home health service (06) | DRG 205 ==
LOC: M.ERS 17:45 → M.2W 18:54 → M.TBA-ER 18:54 → M.2W 20:00
PROVIDERS: Emergency Medicine Emergency Medical Services; Internal Medicine; ADMIT Internal Medicine
PROC: 5A09357 Assistance with Respiratory Ventilation, Less than 24 Consecutive Hours, Continuous Positive Airway Pressure (ICD-10-PCS; principal; 2018-03-11)
DX: T17.920A Food in respiratory tract, part unspecified causing asphyxiation, initial encounter (principal); J96.21 Acute and chronic respiratory failure with hypoxia; J96.22 Acute and chronic respiratory failure with hypercapnia; K50.90 Crohn's disease, unspecified, without complications; N18.4 Chronic kidney disease, stage 4 (severe); J98.11 Atelectasis; E66.2 Morbid (severe) obesity with alveolar hypoventilation; I50.32 Chronic diastolic (congestive) heart failure; Z68.43 Body mass index [BMI] 50.0-59.9, adult; I13.0 Hypertensive heart and chronic kidney disease with heart failure and stage 1 through stage 4 chronic kidney disease, or unspecified chronic kidney disease; E78.5 Hyperlipidemia, unspecified; I48.91 Unspecified atrial fibrillation; E03.9 Hypothyroidism, unspecified; E11.22 Type 2 diabetes mellitus with diabetic chronic kidney disease; J44.9 Chronic obstructive pulmonary disease, unspecified; R00.1 Bradycardia, unspecified; D64.9 Anemia, unspecified; I25.119 Atherosclerotic heart disease of native coronary artery with unspecified angina pectoris; I65.21 Occlusion and stenosis of right carotid artery; Z79.82 Long term (current) use of aspirin; Z79.899 Other long term (current) drug therapy; Z95.5 Presence of coronary angioplasty implant and graft; I25.2 Old myocardial infarction; Z88.2 Allergy status to sulfonamides; Z91.040 Latex allergy status; Z82.49 Family history of ischemic heart disease and other diseases of the circulatory system; Z95.1 Presence of aortocoronary bypass graft; X58.XXXA Exposure to other specified factors, initial encounter; Y93.89 Activity, other specified; Y92.89 Other specified places as the place of occurrence of the external cause; Y99.8 Other external cause status

== ENCOUNTER 2020-02-02 04:54 | Inpatient (IN) | payer MEDICARE, MEDICAID ==
[~2020-02-02] VITALS: Ht 172.7 cm; Wt 133.8 kg
[~2020-02-02 04:54] MED LIST changes: +AMITRIPTYLINE H25 M2 PO; +AMLODIPINE BESYL5 M1 PO; -LEVEMIR SUBQ; +LEVEMIR100 UNIT/1 SUBQ; +PROPRANOLOL 1010 MG PO; +SINGULAIR 10 MG10 M1 PO; +ZAROXOLYN 5MG TA5 MG PO
[2020-02-02 04:59] VITALS: BP 172/67
[2020-02-02] MEDS ORDERED: LASIX 40 MG TAB40 M2 PO (05:03)
[2020-02-02] MEDS ORDERED: ZOLOFT100 MG PO (05:03)
[2020-02-02 05:46] LABS: AMP/METHAMP Negative (Negative); BARBITURATES Negative (Negative); BENZODIAZEPINES Negative (Negative); COCAINE Negative (Negative); METHADONE Negative (Negative); OPIATES Negative (Negative); PCP Negative (Negative); THC Negative (Negative)
[2020-02-02 05:47] LABS: HEMATOCRIT 35.7 % (37.0-47.0); HEMOGLOBIN 11.2 gm/dL (12.0-15.0); MCH 26.3 pg (26.0-34.0); MCHC 31.5 g/dL (28.0-37.0); MCV 83.6 fL (80.0-100.0); MPV 8.7 fl. (7.2-11.1); NUCLEATED RBCS 0 /100WBC; PLATELET COUNT* 268 thou/uL (150-400); RBC 4.27 mil/uL (4.20-5.00); RDW-CV 15.5 % (10.5-14.5); WBC 16.8 thou/uL (4.0-11.0)
[2020-02-02 05:48] LABS: CALCIUM 9.2 mg/dL (8.5-10.1); CREATININE 3.2 mg/dL (0.6-1.3); POTASSIUM 3.7 mmol/L (3.5-5.1)
[2020-02-02 05:53] LABS: ALBUMIN 3.3 g/dL (3.4-5.0); TOTAL BILIRUBIN 0.2 mg/dL (<0.1-1.0); TOTAL PROTEIN 8.6 g/dL (6.4-8.2)
[2020-02-02 06:37] LABS: APTT 27.7 Seconds (25.0-31.3); PROTIME 10.4 Seconds (9.20-11.50)
[2020-02-02 06:59] LABS: ABSOLUTE EOSINOPHILS 0.2 thou/uL (0.0-0.7); ABSOLUTE LYMPHOCYTES 2.5 thou/uL (0.8-5.3); ABSOLUTE MONOCYTES 0.2 thou/uL (0.0-1.2); ABSOLUTE NEUTROPHILS 13.9 thou/uL (1.6-8.1); ATYPICAL LYMPHS 3 %; PLATELET ESTIMATE ADEQUATE
[2020-02-02 08:51] VITALS: BP 142/55
[2020-02-02 09:30] VITALS: BP 155/56
[2020-02-02] MEDS ORDERED: HUMALOG100 UNIT/1 SUBQ (16:47)
[2020-02-02 18:25] LABS: URINE BILIRUBIN NEGATIVE (Negative); URINE BLOOD NEGATIVE (Negative); URINE CLARITY CLEAR; URINE COLOR YELLOW; URINE GLUCOSE-RANDOM 3+ (Negative); URINE KETONES NEGATIVE (Negative); URINE LEUKOCYTES NEGATIVE (Negative); URINE NITRITE NEGATIVE (Negative); URINE PROTEIN 1+ (Negative); URINE UROBILINOGEN 0.2 E.U./dl (0.2-1.0)
[2020-02-02 20:45] VITALS: BP 167/56
[2020-02-03] VITALS: BP 194/75
[2020-02-03 04:00] VITALS: BP 138/52
[2020-02-03 04:18] LABS: HEMATOCRIT 31.7 % (37.0-47.0); HEMOGLOBIN 9.8 gm/dL (12.0-15.0); MCH 26.7 pg (26.0-34.0); MCHC 31.1 g/dL (28.0-37.0); MCV 86.1 fL (80.0-100.0); MPV 8.9 fl. (7.2-11.1); RBC 3.68 mil/uL (4.20-5.00); RDW-CV 15.2 % (10.5-14.5); WBC 14.6 thou/uL (4.0-11.0)
[2020-02-03 04:35] LABS: ALBUMIN 2.8 g/dL (3.4-5.0); CREATININE 2.9 mg/dL (0.6-1.3); MAGNESIUM 2.2 mg/dL (1.8-2.4); TOTAL BILIRUBIN 0.2 mg/dL (<0.1-1.0); TOTAL PROTEIN 7.7 g/dL (6.4-8.2)
[2020-02-03 04:51] LABS: POTASSIUM 4.8 mmol/L (3.5-5.1)
[2020-02-03 07:20] VITALS: BP 137/46
--- NOTE | 2020-02-03 09:09 | CON ---
[address] [address] CONSULTATION Name: FRANCISCA WYMAN Room: [address] IN .R.#: [id number] Admission: 02/03/20 Attend Phys: Manny Ortez MD Discharge: Date of : 56 Report #: [id number] THIS REPORT FOR: //name// cc: ADRIANNA - No family physician/PCP ADRIANNA - No family physician/PCP ~ DATE OF SERVICE: 02/02/2020 REQUESTING PHYSICIAN: Dr. Frausto. REASON FOR CONSULTATION: Acute kidney injury. HISTORY OF PRESENT ILLNESS: The patient is a very pleasant 59-year-old female with medical history significant for chronic kidney disease stage 4, diabetes mellitus type 2, hypertension, morbid obesity, who presented to the hospital with complaints of right foot pain. She was diagnosed with acute gouty attack. Her creatinine baseline around 2, went up to 3 and I was consulted. PAST MEDICAL HISTORY: As I mentioned earlier. SOCIAL HISTORY: No tobacco or alcohol abuse. FAMILY HISTORY: Positive for hypertension, diabetes and obesity. REVIEW OF SYSTEMS: Positive for severe pain in his right foot and ankle. Rest of the systems negative. MEDICATIONS: Reviewed. PHYSICAL EXAMINATION: GENERAL: Awake, alert, oriented. States she feels better. VITAL SIGNS: Blood pressure now is 155/56, heart rate 70, afebrile. HEENT: Pupils round. NECK: Fatty. LUNGS: Clear. CARDIOVASCULAR: Regular rate. ABDOMEN: Soft. EXTREMITIES: Right ankle is red and tender. LABORATORY REPORT: Serum sodium 138, potassium 3.7, chloride 100, carbon dioxide 30, BUN 96, creatinine 3.2. Urinalysis not done yet. ASSESSMENT: 1. Acute gouty attack. 2. Acute kidney injury, could be damaged due to gouty nephropathy. [address] [place] [address] CONSULTATION Name: ZAMZAMFRANCISCA L Room: [address]#: [id number] Admission: 02/03/20 Attend Phys: Manny Ortez MD Discharge: Date of : 56 Report #: [id number] 3. Morbid obesity. 4. Diabetes mellitus type 2. 5. Hypertension. PLAN: 1. Continue with steroids. 2. Decrease colchicine to 0.6 mg every other day due to her renal problems. 3. Obtain renal ultrasound. 4. Follow labs. Thank you very much. <ELECTRONICALLY SIGNED> By: Efrain Garces MD 02/03/20 0909 1451 [id number] Garces MD /PMT
[2020-02-03 11:00] VITALS: BP 137/46
[2020-02-03 16:00] VITALS: BP 158/50
[2020-02-03 20:00] VITALS: BP 165/60
[2020-02-04] VITALS (7 sets, daily range): BP systolic 101–200; BP diastolic 48–72
[2020-02-04 04:32] LABS: CALCIUM 8.2 mg/dL (8.5-10.1); CREATININE 2.5 mg/dL (0.6-1.3); POTASSIUM 4.6 mmol/L (3.5-5.1); TOTAL BILIRUBIN 0.2 mg/dL (<0.1-1.0)
[2020-02-04 04:34] LABS: HEMOGLOBIN 10.3 gm/dL (12.0-15.0); MCH 26.8 pg (26.0-34.0); MCHC 31.2 g/dL (28.0-37.0); MPV 8.9 fl. (7.2-11.1); RBC 3.84 mil/uL (4.20-5.00); RDW-CV 15.4 % (10.5-14.5); WBC 15.8 thou/uL (4.0-11.0)
== END 2020-02-04 19:35 | disposition short-term general hospital (02) | DRG 682 ==
LOC: M.ERS 04:54 → M.2W 06:59 → M.TBA-ER 06:59 → M.2W 09:06
PROVIDERS: Internal Medicine; Internal Medicine Nephrology; Personal Emergency Response Attendant; ADMIT Internal Medicine; ATTEND Internal Medicine
PROC: 5A0935A Assistance with Respiratory Ventilation, Less than 24 Consecutive Hours, High Flow/Velocity Cannula (ICD-10-PCS; 2020-02-02)
PROC: 5A09357 Assistance with Respiratory Ventilation, Less than 24 Consecutive Hours, Continuous Positive Airway Pressure (ICD-10-PCS; principal; 2020-02-03)
PROC: 5A09357 Assistance with Respiratory Ventilation, Less than 24 Consecutive Hours, Continuous Positive Airway Pressure (ICD-10-PCS; 2020-02-04)
DX: N17.0 Acute kidney failure with tubular necrosis (principal); J96.22 Acute and chronic respiratory failure with hypercapnia; J96.21 Acute and chronic respiratory failure with hypoxia; I50.32 Chronic diastolic (congestive) heart failure; Z68.41 Body mass index [BMI] 40.0-44.9, adult; I13.0 Hypertensive heart and chronic kidney disease with heart failure and stage 1 through stage 4 chronic kidney disease, or unspecified chronic kidney disease; M10.9 Gout, unspecified; N18.4 Chronic kidney disease, stage 4 (severe); E66.01 Morbid (severe) obesity due to excess calories; G47.33 Obstructive sleep apnea (adult) (pediatric); I25.10 Atherosclerotic heart disease of native coronary artery without angina pectoris; I48.91 Unspecified atrial fibrillation; E03.9 Hypothyroidism, unspecified; J44.9 Chronic obstructive pulmonary disease, unspecified; E11.22 Type 2 diabetes mellitus with diabetic chronic kidney disease; M25.571 Pain in right ankle and joints of right foot; Z20.828 Contact with and (suspected) exposure to other viral communicable diseases; Z95.5 Presence of coronary angioplasty implant and graft; Z86.14 Personal history of Methicillin resistant Staphylococcus aureus infection; I25.2 Old myocardial infarction; Z88.2 Allergy status to sulfonamides; Z91.040 Latex allergy status; Z82.49 Family history of ischemic heart disease and other diseases of the circulatory system; Z83.3 Family history of diabetes mellitus; Z83.49 Family history of other endocrine, nutritional and metabolic diseases; Z79.899 Other long term (current) drug therapy